=== PATIENT | female | born 1990 | race Two or more races ===

== ENCOUNTER 2023-04-10 14:53 | Emergency (ER) | payer OTHER, SELFPAY ==
--- NOTE | ~2023-04-10 | XR_ITS ---
EXAMINATION:XR foot LT min 3V, XR ankle LT min 3V VIEWS ACQUIRED: Frontal lateral and oblique left foot and left ankle total 5 views CLINICAL INFORMATION: Reason for Exam fall, pain COMPARISON: None available at the time of this dictation. FINDINGS: There is a nondisplaced fracture at the base of the fifth metatarsal. There are no other fractures. Ankle mortise is preserved. Talar dome is intact. Medial and lateral malleoli are normal.. Intertarsal, tarsometatarsal, metatarsophalangeal and interphalangeal joints are intact. Surrounding soft tissues is normal. , No calcaneal spurs. XR/XR ankle LT min 3V IMPRESSION: - Nondisplaced FRACTURE at the base of the fifth metatarsal.
--- NOTE | ~2023-04-10 | XR_ITS ---
EXAMINATION:XR foot LT min 3V, XR ankle LT min 3V VIEWS ACQUIRED: Frontal lateral and oblique left foot and left ankle total 5 views CLINICAL INFORMATION: Reason for Exam fall, pain COMPARISON: None available at the time of this dictation. FINDINGS: There is a nondisplaced fracture at the base of the fifth metatarsal. There are no other fractures. Ankle mortise is preserved. Talar dome is intact. Medial and lateral malleoli are normal.. Intertarsal, tarsometatarsal, metatarsophalangeal and interphalangeal joints are intact. Surrounding soft tissues is normal. , No calcaneal spurs. XR/XR foot LT min 3V IMPRESSION: - Nondisplaced FRACTURE at the base of the fifth metatarsal.
[2023-04-10 15:18] VITALS: BP 109/73; PULSE 85; RESP 18; TEMP 37.3; O2SAT 99; BMI 28.1
--- NOTE | 2023-04-10 15:20 | ED_ITS ---
HPI - Extremity Injury (Lower) General Chief Complaint: Extremity Injury, Lower Stated Complaint: L foot injury Time Seen by Provider: 04/10/23 16:09 Related Data Allergies Allergy/AdvReac Type Severity Reaction Status Date / Time No Known Allergies Allergy Verified 04/10/23 15:22 [facility] Social History Social History Advance Directives: No Advance Directives Information Provided: No Physical Exam Vital Signs: Vital Signs: Last Vital Signs Temp 99.1 F 04/10/23 15:18 Pulse 85 04/10/23 15:18 Resp 18 04/10/23 15:18 BP 109/73 04/10/23 15:18 Pulse Ox 99 04/10/23 15:18 O2 Del Method Room Air 04/10/23 15:18 BMI result Body Mass Index 28.1 Course Course Course Narrative: This is an RME: Additional HPI, ROS, PE not included below will be deferred to primary provider. Patient is a presents emergency department for evaluation of traumatic left ankle/ foot pain 2 days ago with worsening pain, antalgic gait Plan: XR of the ankle/ foot Discharge Plan Discharge Clinical Impression: Nondisplaced fracture of fifth metatarsal bone of left foot Patient Disposition: Home, Self-Care Instructions: Foot Fracture in Adults (ED) Additional Instructions: You have been evaluated in the emergency department today for left foot pain. Your x-ray showed a nondisplaced fracture to the base of your 5th metatarsal. We have provided a walking boot and crutches for you to use while your foot heals. Please rest, ice, and elevate your foot, and resume normal activities as tolerated. We recommend you take 600mg ibuprofen every 6 hours or 650mg Tylenol every 6 hours as needed for pain. If Needed you can alternate these medications as they take 1 medication every 3 hours. For instance at noon take ibuprofen, then at 3:00 p.m. take Tylenol, then at 6:00 p.m. take ibuprofen. Please schedule an appointment for follow-up with your primary care provider this week. Return to the emergency department if you experience worsening pain, numbness, tingling, change of color in your foot, or any other concerning symptoms. Please follow up with orthopedics. Referrals: [facility] [Provider Group] Stand Alone Forms: Work/School Release Interventions: ED Discharge Assessment Last Done: 04/10/23 17:11 Discharge Date/Time: 04/10/23 17:11
--- NOTE | 2023-04-10 16:59 | ED_ITS ---
HPI - General Adult General Chief complaint: Extremity Injury, Lower Stated complaint: L foot injury Time Seen by Provider: 04/10/23 16:09 Source: patient Mode of arrival: ambulatory Limitations: no limitations History of Present Illness HPI narrative: Patient is a 32-year-old female presenting to the emergency department with complaint of left lateral foot pain. Patient reports that she went out to her car at 11:00 p.m. 2 nights ago to get a soda and the ground was uneven, she felt her foot invert and reports hearing a cracking sound. Reports increasing pain with ambulation since. Denies any numbness or tingling to foot or toes. Has taken ibuprofen. complaint: left foot pain Onset (ago): day(s) Location: lower extremity Radiation: non-radiation Severity: moderate Quality: aching Pain Consistency: constant Relieving factors: rest Exacerbating factors: movement and other (weight bearing) Associated symptoms: denies other symptoms Treatments prior to arrival: NSAID Related Data Allergies Allergy/AdvReac Type Severity Reaction Status Date / Time No Known Allergies Allergy Verified 04/10/23 15:22 Review of Systems Review of Systems: As per HPI. Yes all other systems are reviewed and are negative Constitutional: Constitutional: Reports as per HPI [facility] Social History Social History Advance Directives: No Advance Directives Information Provided: No Physical Exam ED Vital Signs: Vital Signs - 24 hr 04/10/23 15:18 Temperature 99.1 F Pulse Rate 85 Respiratory Rate 18 Blood Pressure 109/73 Pulse Oximetry 99 Oxygen Delivery Method Room Air BMI result Body Mass Index 28.1 Vital signs have been reviewed and appear to be correct. Blood pressure normal. Heart rate normal. Respiratory rate normal. Temperature normal. Oxygen saturation normal. Const General: cooperative, healthy appearing and no acute distress Orientation/consciousness: oriented to person, oriented to place, oriented to time and patient oriented x3 Limitations: no limitations HENMT Head: Yes normocephalic and Yes atraumatic Ears: external ears normal General nose exam: Normal external nose present Face and sinus: Yes face symmetric Mouth: oropharynx normal and moist mucous membranes Throat: Yes uvula midline Eyes Pupils: Equal, round and reactive pupils present Neck Neck: Yes normal visual inspection and Yes supple Resp Effort & Inspection: normal respiratory effort and able to speak in complete sentences Auscultation: clear to auscultation bilaterally Cardio Rate: regular rate Rhythm: regular rhythm Heart sounds: S1 normal heart sound present and S2 normal heart sound present GI Palpation (GI): Soft to palpation and nontender Auscultation: normoactive bowel sounds General: Yes no CVA tenderness Back/Spine/Pelvis Back: no CVA tenderness Skin General skin exam: elasticity normal and turgor normal Neuro General: oriented to person, oriented to place, oriented to time, patient oriented x3, moves all extremities, no focal motor deficits and CN's II-XI intact bilaterally Cranial nerves: Yes Equal, round and reactive pupils present Cognition (Neuro): normal cognition Extrem General: Yes full ROM, Yes normal exam except as noted, Yes no pedal edema and Yes no calf tenderness Left lower extremity: foot Details: normal capillary refill, tenderness Location: of the dorsal foot Location: laterally and of the base of the 5th metatarsal, ecchymosis dorsal lateral and vascular exam Details: dorsalis pedis pulse present and posterior tibial pulse present Psych Mental Status: mental status grossly normal Affect: normal affect Thought process: Normal thought process present Medical Decision Making Medical Decision Making MDM Narrative: Patient is a 32-year-old female presenting to the emergency department with complaint of left lateral foot pain. On exam patient is awake, A+Ox3, VS WNL, afebrile, normal neurological exam without focal deficits, tenderness, swelling and mild ecchymosis to base of 5th metatarsal on left foot, 2+ DP and PT pulses. Given reported symptoms and physical exam findings, initial differential includes strain, sprain, fracture. X-ray notable for nondisplaced fracture base of 5th metatarsal. My interpretation is in agreement with the radiologist's interpretation. Results discussed with patient. Patient placed in walking boot with positive CMS distal after application of boot. Patient provided with crutches and crutch teaching. Instructed patient to keep foot elevated while at rest, apply ice several times daily, alternate Tylenol and ibuprofen as needed for discomfort, and follow-up with orthopedics. Return precautions discussed at bedside. Patient verbalized understanding of and agreement with plan. Differential Diagnosis Differential Diagnoses: The differential diagnosis associated with the presentation includes As per MDM. Independent Interpretation I performed an independent interpretation of an: Plain X-Ray Interpretation: Nondisplaced 5th metatarsal fracture Radiology Impression Discussion of test interpretation with radiology: I have reviewed the radiologist's reading. Radiologist Impression: XR/XR foot LT min 3V IMPRESSION: ? - Nondisplaced FRACTURE at the base of the fifth metatarsal. ? ? External Record Review External record reviewed: Inpatient record, Office record and Outpatient record Discharge Plan Discharge Clinical Impression: Nondisplaced fracture of fifth metatarsal bone of left foot Patient Disposition: Home, Self-Care Instructions: Foot Fracture in Adults (ED) Additional Instructions: You have been evaluated in the emergency department today for left foot pain. Your x-ray showed a nondisplaced fracture to the base of your 5th metatarsal. We have provided a walking boot and crutches for you to use while your foot heals. Please rest, ice, and elevate your foot, and resume normal activities as tolerated. We recommend you take 600mg ibuprofen every 6 hours or 650mg Tylenol every 6 hours as needed for pain. If Needed you can alternate these medications as they take 1 medication every 3 hours. For instance at noon take ibuprofen, then at 3:00 p.m. take Tylenol, then at 6:00 p.m. take ibuprofen. Please schedule an appointment for follow-up with your primary care provider this week. Return to the emergency department if you experience worsening pain, numbness, tingling, change of color in your foot, or any other concerning symptoms. Please follow up with orthopedics. Referrals: [facility] [Provider Group]
== END 2023-04-10 17:11 | disposition home or self-care (01) ==
PROVIDERS: Emergency Provider Emergency Medicine
DX: S92.355A Nondisplaced fracture of fifth metatarsal bone, left foot, initial encounter for closed fracture (principal); X50.1XXA Overexertion from prolonged static or awkward postures, initial encounter; Y93.89 Activity, other specified; Y92.480 Sidewalk as the place of occurrence of the external cause; Y99.9 Unspecified external cause status
CPT/HCPCS: 73610; 73630; 99283; 99284

== ENCOUNTER 2023-06-07 21:47 | Inpatient (IN) | payer OTHER, SELFPAY ==
[2023-06-07 21:58] VITALS: BP 104/60; PULSE 100; O2SAT 97
[2023-06-07 22:13] VITALS: BMI 27.1
[2023-06-07 22:21] LABS: MANUAL DIFF FLAG NO
[2023-06-07] MEDS: 0.9 % Sodium Chloride 1,000 ML 999 ML IV (22:21)
[2023-06-07 22:25] VITALS: BP 104/71; PULSE 76; RESP 18; TEMP 37.4; O2SAT 99
[2023-06-07 22:25] LABS: Basophils Percent Auto 0.6 % (0-2); Eosinophils Absolute Auto 0.2 X10*3/uL (0.0-0.4); Eosinophils Percent Auto 3.4 % (0-4); Hemoglobin 12.2 g/dl (12.0-16.0); Imm Gran Abs Auto 0.01 X10*3/uL (0.00-0.03); Imm Gran Pct Auto 0.2 % (0.0-0.4); Lymphocytes Absolute Auto 2.4 X10*3/uL (1.2-4.9); Lymphocytes Percent Auto 49.1 % (20-40); Mean Corpuscular HGB Conc 32.1 g/dl (31.0-35.0); Mean Corpuscular Hemoglobin 30.9 pg (27.0-33.0); Mean Corpuscular Volume 96.2 fL (80.0-98.0); Monocytes Absolute Auto 0.4 X10*3/uL (0.1-1.2); Monocytes Percent Auto 7.7 % (2-11); Neutrophils Absolute Auto 1.9 x10*3/uL (2.0-8.3); Platelet Count 278 X10*3/uL (160-400); Red Blood Count 3.95 X10*6/uL (4.20-5.50); Red Cell Distribution Width 12.9 % (11.0-16.0)
[2023-06-07] MEDS: HYDROmorphone HCl 0.5 MG/0.5 ML SYRINGE IVPUSH (22:27)
[2023-06-07] MEDS: ondansetron HCL 4 MG/2 ML VIAL IVPUSH (22:28)
--- NOTE | 2023-06-07 22:30 | ED_ITS ---
HPI - Wound/Laceration General Chief Complaint: Wound/Laceration Stated Complaint: 2TUMMY TUCK INCISION OPENED UP, BLEEDING CONTRLD Time Seen by Provider: 06/07/23 22:02 Source: patient Mode of arrival: EMS Limitations: no limitations History of Present Illness HPI narrative: 32 yo female who underwent a tummy tuck in on 04/18 and who has done well. She reports on the R side she had a small hole that was left open not a drain so she could express fluids. She is not on antibiotics or thinners. She notes she was doing great until she accidentally rolled over onto her phone and it ripped her R sided incision open. She did not bleed much but the wound is open and she has pain. Onset (ago): minute(s) (just prior to arrival ) Location: abdomen Place: home Patient tetanus UTD: Yes Context: accidental Associated symptoms: pain Treatments prior to arrival: bandage Related Data Allergies Allergy/AdvReac Type Severity Reaction Status Date / Time Latex, Natural Rubber Allergy Unknown Verified 06/07/23 22:19 Review of Systems 2 Review of Systems: Constitutional : No Fever, No Chills, Cardiovascular : No Chest Pain, No SOB Respiratory : No Dyspnea Gastrointestinal : No abdominal pain Musculoskeletal : No Joint Swelling Skin : No rash, positive skin laceration Neuro : No Weakness, No Numbness Psych : No SI/HI All other systems reviewed and are negative PMFSH Past Medical History Attestation statement: The following information was validated with the patient. Source: old records reviewed Medical History No pertinent past medical history Surgical History H/O abdominoplasty Social History Social History (Updated 06/07/23 @ 22:33 by Suyapa Saul DO) Alcohol intake: never Patient Tobacco Use Status: Never used Tobacco Smoked in Last 30 Days: No Use of substances other than those prescribed or required for medical reasons: No Advance Directives: No Advance Directives Information Provided: Yes Nutrition Risks: No Nutritional Risk Physical Exam 2 Vital Signs: Vital Signs: Last Vital Signs Temp 99.3 F 06/07/23 22:25 Pulse 76 06/07/23 22:25 Resp 18 06/07/23 22:25 BP 104/71 06/07/23 22:25 Pulse Ox 99 06/07/23 22:25 O2 Del Method Room Air 06/07/23 22:25 BMI result Body Mass Index 27.1 Appearance: Alert. Oriented X3. Anxious mild acute distress. Eyes: Pupils equal, round and reactive to light. ENT: Pharynx normal. Neck: Normal inspection. Neck supple. CVS: Normal heart rate and rhythm. Pulses normal. Respiratory: No respiratory distress. Breath sounds normal. Abdomen: Soft and nontender. R sided incision there is open 6 to 8cm dehisced surgical wound but it does not seem to invade the fascia or peritoneum no leakage of fluid, there is no sig bleeding, the wound margins are taut I packed the wound with sterile saline soaked gauze and covered with abd dressings. Skin: Skin warm and dry. Normal skin color. Normal skin turgor. Extremities: No lower extremity edema. No calf ttp Neuro: Oriented X 3. No motor deficit. No sensory deficit. Medications Administered Generic Name Dose Route Start Last Admin Trade Name Freq PRN Reason Stop Dose Admin Hydromorphone HCl 0.5 mg 06/07/23 23:18 06/08/23 01:26 Hydromorphone Hcl 0.5 Mg/0.5 Ml Syringe IVPUSH 0.5 mg Q4H PRN Administration Pain, Severe (Pain Scale 7-10) Protocol Dextrose/Sodium Chloride 1,000 mls @ 100 mls/hr 06/07/23 23:30 06/08/23 00:21 D51/2ns IVCONT 100 mls/hr .Q10H RENATA Administration Sodium Chloride 3 ml 06/08/23 00:00 06/08/23 00:24 0.9 % Sodium Chloride Flush 3 Ml Syringe IVFLUSH 3 ml QSHIFT RENATA Administration Discontinued Medications Generic Name Dose Route Start Last Admin Trade Name Freq PRN Reason Stop Dose Admin Hydromorphone HCl 0.5 mg 06/07/23 22:14 06/07/23 22:27 Hydromorphone Hcl 0.5 Mg/0.5 Ml Syringe IVPUSH 06/07/23 22:15 0.5 mg ONCE ONE Administration Protocol Sodium Chloride 1,000 mls @ 999 mls/hr 06/07/23 22:15 06/08/23 00:00 Ns IV 06/07/23 23:15 Infused .Q1H1M RENATA Infusion Cefazolin Sodium 1 gm/ Sodium 50 mls @ 100 mls/hr 06/07/23 22:14 06/07/23 23:10 Chloride IV 06/07/23 22:43 Infused ONCE ONE Infusion Ondansetron HCl 4 mg 06/07/23 22:14 06/07/23 22:28 Ondansetron Hcl 4 Mg/2 Ml Vial IVPUSH 06/07/23 22:15 4 mg ONCE ONE Administration Medical Decision Making Medical Decision Making [facility] Narrative: 32 yo female recent abdominoplasty here with c/o R sided wound dehiscence after direct trauma from her phone at this time wound edges are taut there is no clinical evidence of fascial or peritoneal invasion will start on fluids, IV morphine, IV ancef and surgical consult. Differential Diagnosis Differential Diagnoses: The differential diagnosis associated with the presentation includes wound dehiscence Admission/Observation Consideration of admission/observation: Escalation of care including admission/observation considered admit for surgical evaluation Consult Healthcare Provider Management of the patient was discussed with: Product Communications Manager (Dr. Zavaleta to admit) Lab Data [facility] Lab Attestation statement: I reviewed the patient's lab results. 06/07/23 22:16 06/07/23 22:16 Labs: Lab Results 06/07/23 Range/Units 22:16 WBC 5.0 (4.8-10.8) X10*3/uL RBC 3.95 L (4.20-5.50) X10*6/uL Hgb 12.2 (12.0-16.0) g/dl Hct 38.0 (37.0-47.0) % MCV 96.2 (80.0-98.0) fL MCH 30.9 (27.0-33.0) pg MCHC 32.1 (31.0-35.0) g/dl RDW 12.9 (11.0-16.0) % Plt Count 278 (160-400) X10*3/uL MPV 9.0 L (9.4-12.3) fL Immature Gran % (Auto) 0.2 (0.0-0.4) % Neut % (Auto) 39.0 L (45-73) % Lymph % (Auto) 49.1 H (20-40) % Zapata % (Auto) 7.7 (2-11) % Eos % (Auto) 3.4 (0-4) % Baso % (Auto) 0.6 (0-2) % Lymph # (Auto) 2.4 (1.2-4.9) X10*3/uL Zapata # (Auto) 0.4 (0.1-1.2) X10*3/uL Eos # (Auto) 0.2 (0.0-0.4) X10*3/uL Baso # (Auto) 0.0 (0.0-0.2) X10*3/uL Abs Immat Gran (auto) 0.01 (0.00-0.03) X10*3/uL Absolute Neuts (auto) 1.9 L (2.0-8.3) x10*3/uL Absolute Nucleated RBC 0.000 (0.0-0.012) X10*3/uL Nucleated RBC % (auto) 0.0 (0.0-0.2) /100WBC Sodium 141 (135-145) mmol/L Potassium 3.6 (3.3-5.1) mmol/L Chloride 109 H (96-108) mmol/L Carbon Dioxide 23 (22-29) mmol/L Anion Gap 13 (12-20) BUN 12 (9-16) mg/dL Creatinine 0.78 (0.5-1.4) mg/dL Estim Creat Clear Calc 92.1 Estimated GFR > 60 Random Glucose 89 (60-115) mg/dL Lactic Acid 1.1 (0.5-2.0) mmol/L Calcium 9.3 (8.4-10.2) mg/dL Total Bilirubin 0.4 (0.0-1.0) mg/dL Direct Bilirubin 0.2 (0.0-0.5) mg/dL AST 18 (5-31) U/L ALT 16 (0-31) U/L Alkaline Phosphatase 73 (39-117) U/L Total Protein 7.0 (6.5-8.0) g/dL Albumin 4.1 (3.5-5.0) g/dL Lipase 51 (8-78) U/L Independent Historian Clinical information obtained from an independent historian. History obtained from or confirmed by: EMS Tests considered The following testing was considered but not selected: CT scan but no clinical evidence of peritoneal invasion Discharge Plan Discharge Clinical Impression: Dehiscence of wound Patient Disposition: Admitted As Inpatient
[2023-06-07 22:32] LABS: Lactic Acid 1.1 mmol/L (0.5-2.0)
[2023-06-07 22:36] LABS: Alanine Aminotransferase 16 U/L (0-31); Albumin Level 4.1 g/dL (3.5-5.0); Alkaline Phosphatase 73 U/L (39-117); Anion Gap 13 (12-20); Aspartate Amino Transferase 18 U/L (5-31); Bilirubin Direct 0.2 mg/dL (0.0-0.5); Bilirubin Total 0.4 mg/dL (0.0-1.0); Blood Urea Nitrogen 12 mg/dL (9-16); Calcium 9.3 mg/dL (8.4-10.2); Carbon Dioxide 23 mmol/L (22-29); Chloride 109 mmol/L (96-108); Creatinine Clr Calc Pharmacy 92.1; Estimated Glomerular Filt Rate > 60; Glucose Random 89 mg/dL (60-115); Lipase 51 U/L (8-78); Potassium 3.6 mmol/L (3.3-5.1); Sodium 141 mmol/L (135-145)
[2023-06-08] VITALS (15 sets, daily range): BP systolic 98–129; BP diastolic 66–79; PULSE 60–92; RESP 12–18; TEMP 36.1–37; O2SAT 96–100
[2023-06-08] MEDS: Dextrose 5 % and 0.45 % NaCl 1,000 ML 100 ML IVCONT ×2 (00:21→15:53)
[2023-06-08] MEDS: 0.9 % Sodium Chloride Flush 3 ML SYRINGE IVFLUSH ×3 (00:24→21:29)
[2023-06-08] MEDS: HYDROmorphone HCl 0.5 MG/0.5 ML SYRINGE IVPUSH ×4 (01:26→21:31)
[2023-06-08] MEDS: ceFAZolin Sodium/Dextrose,Iso 2 GM/50 ML PIGGYBACK IV ×3 (06:31→21:32)
--- NOTE | 2023-06-08 08:22 | PHA.MEDREC ---
Pharmacy Consult ? Medication Reconciliation Pharmacy has completed the medication reconciliation.
--- NOTE | 2023-06-08 08:45 | PC.NURSE ---
assumed care of pt at 0700. pt a&o x4, pleasant, calm, and cooperative. pt reports pain to right side, where incision opened up. medicated per oct. fluids running per oct. VSS hansa. surgical PA checked in with pt and educated on the plan of care. SSS called for report on pt with pickup time to OR at 1000. pt sts pain has decreased to 3/10 and much more tolerable. pt resting quietly on stretcher in no apparent distress, rr even/unlabored. call rodriguez within pt reach. pt s/o at bedside. awaiting transport to OR.
--- NOTE | 2023-06-08 09:08 | P.HPGS_ITS ---
History of Present Illness History of Present Illness Date of Service: 06/08/23 <Ketty Kilpatrick PA-C - Last Filed: 06/08/23 09:31> 06/08/23 <Con Zavaleta MD - Last Filed: 06/08/23 13:54> Chief complaint: Wound dehiesence <Ketty Kilpatrick PA-C - Last Filed: 06/08/23 09:31> Narrative: Ting Mitchell is a 32 year old female with no significant PMH who presented to the ED for an open abdominal wound. She had an abdominoplasty in the [facility] on 05/18. The surgery was uncomplicated. She had a ADRIANO drain that was removed on 05/27 and she flew home on 05/28. She had a small opening where the drain was which had very scant drainage. She had been doing well and her recovery had been uneventful. She reports last night she was laying down and turned over onto her phone which caught the edge of her incision. She felt a significant amount of pain and warmth and looked down to a large open wound along her incision. She came immediately to the ED. She has had nothing to eat or drink since last night. <Ketty Kilpatrick PA-C - Last Filed: 06/08/23 09:31> Review of Systems 2 Constitutional: Constitutional: Denies chills and Denies fever(s) < Ketty Kilpatrick PA-C - Last Filed: 06/08/23 09:31> ENT: Denies dizziness <Ketty Kilpatrick PA-C - Last Filed: 06/08/23 09:31> Cardiovascular: Cardiovascular: Denies chest pain, Denies palpitations and Denies dyspnea <Ketty Kilpatrick PA-C - Last Filed: 06/08/23 09:31> Respiratory: Respiratory: Denies cough and Denies dyspnea <ALEX Al Last Filed: 06/08/23 09:31> Gastrointestinal: Gastrointestinal: Reports abdominal pain, Denies nausea and Denies vomiting <ALEX Al Last Filed: 06/08/23 09:31> Integumentary/Breasts: Skin/Breast: Reports as per HPI, Denies rash and Denies jaundice <Ketty Kilpatrick PA-C - Last Filed: 06/08/23 09:31> Neurologic: Denies dizziness <Ketty Kilpatrick PA-C Last Filed: 06/08/23 09:31> Endocrine: Endocrine: Denies palpitations <ALEX Al Last Filed: 06/08/23 09:31> PMFSH Past Medical History Medical History: Medical History No pertinent past medical history <ALEX Al Last Filed: 06/08/23 09:31> Surgical History Surgical History: Surgical History History of breast augmentation History of gastric bypass H/O abdominoplasty <ALEX Al Last Filed: 06/08/23 09:31> Social History Social History: Social History Alcohol intake: never Patient Tobacco Use Status: Never used Tobacco Smoked in Last 30 Days: No Second Hand Smoke Exposure: No Use of substances other than those prescribed or required for medical reasons: No Are you DNR?: No Advance Directives: No Advance Directives Information Provided: Yes Advance Directives on File: No Nutrition Risks: No Nutritional Risk service: No <Ketty Kilpatrick PA-C Last Filed: 06/08/23 09:31> Meds Allergies/Adverse reactions: Allergies Allergy/AdvReac Type Severity Reaction Status Date / Time Latex, Natural Rubber Allergy Unknown Verified 06/07/23 22:19 <ALEX Al Last Filed: 06/08/23 09:31> Active Medications: Current Medications Acetaminophen (Acetaminophen 325 Mg Tablet) 650 mg PO Q6H PRN PRN Reason: Pain, Mild (Pain Scale 1-3) Al Hydroxide/Mg Hydroxide (Magnesium Hydrox/Alum Hydrox 30 Ml Oral.Susp) 30 ml PO Q4H PRN PRN Reason: Heartburn/Nausea Hydromorphone HCl (Hydromorphone Hcl 0.5 Mg/0.5 Ml Syringe) 0.5 mg IVPUSH Q4H PRN; Protocol PRN Reason: Pain, Severe (Pain Scale 7-10) Last Admin: 06/08/23 07:21 Dose: 0.5 mg Dextrose/Sodium Chloride (D51/2ns) 1,000 mls @ 100 mls/hr IVCONT .Q10H [facility] Last Admin: 06/08/23 00:21 Dose: 100 mls/hr Cefazolin Sodium/Dextrose (Ancef) 2 gm in 50 mls @ 100 mls/hr IV Q8H [facility] Last Infusion: 06/08/23 07:05 Dose: Infused Magnesium Hydroxide (Milk Of Magnesia 30 Ml Oral.Susp) 30 ml PO DAILY PRN PRN Reason: Constipation Ondansetron HCl (Ondansetron Hcl 4 Mg/2 Ml Vial) 4 mg IVPUSH Q8H PRN PRN Reason: Nausea and Vomiting Sodium Chloride (0.9 % Sodium Chloride Flush 3 Ml Syringe) 3 ml IVFLUSH QSHIFT [facility] Last Admin: 06/08/23 07:05 Dose: Not Given Zolpidem Tartrate (Zolpidem Tartrate 5 Mg Tablet) 5 mg PO BEDTIME PRN PRN Reason: Insomnia <ALEX Al Last Filed: 06/08/23 09:31> Home medications: Home Medications Medication Instructions Recorded Confirmed Last Taken Type No Known Home Meds 06/08/23 06/08/23 Unknown History <ALEX Al Last Filed: 06/08/23 09:31> Physical Exam 2 Vital Signs: Vital Signs: Last Vital Signs Temp 99.3 F 06/07/23 22:25 Pulse 92 06/08/23 07:28 Resp 16 06/08/23 07:28 BP 110/79 06/08/23 07:28 Pulse Ox 98 06/08/23 07:28 O2 Del Method Room Air 06/08/23 07:28 BMI result Body Mass Index 27.1 <ALEX Al Last Filed: 06/08/23 09:31> Const: General: comfortable, no acute distress and alert <ALEX Al Last Filed: 06/08/23 09:31> Nutritional Appearance: well nourished <GORDY AlC - Last Filed: 06/08/23 09:31> Orientation/consciousness: patient oriented x3 <Ketty Kilpatrick PA-C Stephie Last Filed: 06/08/23 09:31> Resp: Effort & Inspection: normal respiratory effort <Ketty Kilpatrick PA-C Stephie Last Filed: 06/08/23 09:31> GI: Other: large open wound of abdominoplasty incision into deep subq fat; fascia appears intact; no active bleeding noted; remainder of incision healing well without erythema or drainage <Ketty Kilpatrick PA-C Stephie Last Filed: 06/08/23 09:31> Skin: General skin exam: no rashes or lesions noted <Ketty Kilpatrick PA-C Stephie Last Filed: 06/08/23 09:31> Neuro: General: patient oriented x3 and moves all extremities <Ketty Kilpatrick PA-C Stephie Last Filed: 06/08/23 09:31> Extrem: General: Yes no clubbing, cyanosis or edema <Ketty Kilpatrick PA-C Stephie Last Filed: 06/08/23 09:31> Results Results Labs: Short CBC 06/07/23 Range/Units 22:16 WBC 5.0 (4.8-10.8) X10*3/uL Hgb 12.2 (12.0-16.0) g/dl Hct 38.0 (37.0-47.0) % Plt Count 278 (160-400) X10*3/uL BMP 06/07/23 22:16 Sodium 141 Potassium 3.6 Chloride 109 H Carbon Dioxide 23 BUN 12 Creatinine 0.78 Calcium 9.3 Liver Function 06/07/23 Range/Units 22:16 Total Bilirubin 0.4 (0.0-1.0) mg/dL Direct Bilirubin 0.2 (0.0-0.5) mg/dL AST 18 (5-31) U/L ALT 16 (0-31) U/L Alkaline Phosphatase 73 (39-117) U/L Albumin 4.1 (3.5-5.0) g/dL <ALEX Al Last Filed: 06/08/23 09:31> Assessment and Plan (1) Dehiscence of wound: Status: Acute <Ketty Kilpatrick PA-C - Last Filed: 06/08/23 09:31> 32 year old female who is 3 weeks s/p abdominoplasty in the [place] with a superficial wound dehiscence. Fascia appears intact. Discussed exploration and wash out in the operating room with possible primary closure or wound vac placement. Discussed the other option is daily dressing changes and allow for wound closure by secondary intention. She is agreeable and would like for it to be closed if possible. Will add onto OR schedule for today. Started on IV abx empirically. <Ketty Kilpatrick PA-C - Last Filed: 06/08/23 09:31> Time Spent With Patient Time: Total time managing care of this patient today ____ minutes. <Ketty Kilpatrick PA-C - Last Filed: 06/08/23 09:31> Quality Stroke Does the patient have a stroke diagnosis?: No <Con Zavaleta MD - Last Filed: 06/08/23 13:54> VTE Prior VTE?: No <Con Zavaleta MD - Last Filed: 06/08/23 13:54> VTE Risk Level:: Surgical - low <Ketty Kilpatrick PA-C - Last Filed: 06/08/23 09:31> VTE Device Contraindication: Treatment Not Indicated <Ketty Kilpatrick PA-C - Last Filed: 06/08/23 09:31> VTE Drug Contraindication: Treatment Not Indicated <Ketty Kilpatrick PA-C - Last Filed: 06/08/23 09:31> Procedures Date of Service Date of Service: 06/08/23 <Ketty Kilpatrick PA-C - Last Filed: 06/08/23 09:31> 06/08/23 <Con Zavaleta MD - Last Filed: 06/08/23 13:54>
--- NOTE | 2023-06-08 09:50 | MHC.CM.PN ---
PT REPORTS SHE LIVES WITH HER S/O AND IS INDEPENDENT WITH CARE SHE HAS NO SERVICES AND NO DME PT DOES NOT HAVE A PCP BUT REPORTS KNOWING HOW TO OBTAIN ONE SHE DOES NOT HAVE A HCP, SHE IS AWARE CM CAN ASSIST IF SHE WANTS TO COMPLETE ONE DCP: HOME NO SERVICES S/O TO TRANSPORT
--- NOTE | 2023-06-08 10:39 | HO.ANESPROP2 ---
HPI - Anesthesia Eval Consult details Narrative: 32 yo F admitted for wound dehiscence s/p abdominoplasty in 04/2023. PMFSH Active Problems Active Problems: All Active Problems (Updated 06/07/23 @ 22:37 by Suyapa Saul DO) Dehiscence of wound (Acute) Past Medical History Medical History No pertinent past medical history Surgical History Surgical History History of breast augmentation History of gastric bypass H/O abdominoplasty History of Problems with Anesthesia: No Social History Social History Alcohol intake: never Patient Tobacco Use Status: Never used Tobacco Smoked in Last 30 Days: No Second Hand Smoke Exposure: No Use of substances other than those prescribed or required for medical reasons: No Are you DNR?: No Advance Directives: No Advance Directives Information Provided: Yes Advance Directives on File: No Nutrition Risks: No Nutritional Risk service: No Meds Allergies Allergy/AdvReac Type Severity Reaction Status Date / Time Latex, Natural Rubber Allergy Unknown Verified 06/07/23 22:19 Active Medications: Current Medications Acetaminophen (Acetaminophen 325 Mg Tablet) 650 mg PO Q6H PRN PRN Reason: Pain, Mild (Pain Scale 1-3) Al Hydroxide/Mg Hydroxide (Magnesium Hydrox/Alum Hydrox 30 Ml Oral.Susp) 30 ml PO Q4H PRN PRN Reason: Heartburn/Nausea Hydromorphone HCl (Hydromorphone Hcl 0.5 Mg/0.5 Ml Syringe) 0.5 mg IVPUSH Q4H PRN; Protocol PRN Reason: Pain, Severe (Pain Scale 7-10) Last Admin: 06/08/23 07:21 Dose: 0.5 mg Dextrose/Sodium Chloride (D51/2ns) 1,000 mls @ 100 mls/hr IVCONT .Q10H [facility] Last Admin: 06/08/23 00:21 Dose: 100 mls/hr Cefazolin Sodium/Dextrose (Ancef) 2 gm in 50 mls @ 100 mls/hr IV Q8H [facility] Last Infusion: 06/08/23 07:05 Dose: Infused Magnesium Hydroxide (Milk Of Magnesia 30 Ml Oral.Susp) 30 ml PO DAILY PRN PRN Reason: Constipation Ondansetron HCl (Ondansetron Hcl 4 Mg/2 Ml Vial) 4 mg IVPUSH Q8H PRN PRN Reason: Nausea and Vomiting Sodium Chloride (0.9 % Sodium Chloride Flush 3 Ml Syringe) 3 ml IVFLUSH QSHIFT [facility] Last Admin: 06/08/23 07:05 Dose: Not Given Zolpidem Tartrate (Zolpidem Tartrate 5 Mg Tablet) 5 mg PO BEDTIME PRN PRN Reason: Insomnia Home Medications Medication Instructions Recorded Confirmed Last Taken Type No Known Home Meds 06/08/23 06/08/23 Unknown History Exam Exam Date and Time: June 08, 2023 1039 Height,Weight and Vital Signs: Height 5 ft 2 in Weight 67.132 kg Last Vital Signs Temp 98.3 F 06/08/23 10:15 Pulse 70 06/08/23 10:15 Resp 16 06/08/23 10:15 BP 103/68 06/08/23 10:15 Pulse Ox 99 06/08/23 10:15 O2 Del Method Room Air 06/08/23 10:15 Pertinent Lab Results Pertinent Lab Results: Laboratory Tests 06/07/23 22:16 WBC 5.0 RBC 3.95 L Hgb 12.2 Hct 38.0 MCV 96.2 MCH 30.9 MCHC 32.1 RDW 12.9 Plt Count 278 MPV 9.0 L Immature Gran % (Auto) 0.2 Neut % (Auto) 39.0 L Lymph % (Auto) 49.1 H Bartholomew % (Auto) 7.7 Eos % (Auto) 3.4 Baso % (Auto) 0.6 Lymph # (Auto) 2.4 Bartholomew # (Auto) 0.4 Eos # (Auto) 0.2 Baso # (Auto) 0.0 Abs Immat Gran (auto) 0.01 Absolute Neuts (auto) 1.9 L Absolute Nucleated RBC 0.000 Nucleated RBC % (auto) 0.0 Sodium 141 Potassium 3.6 Chloride 109 H Carbon Dioxide 23 Anion Gap 13 BUN 12 Creatinine 0.78 Estim Creat Clear Calc 92.1 Estimated GFR > 60 Random Glucose 89 Lactic Acid 1.1 Calcium 9.3 Total Bilirubin 0.4 Direct Bilirubin 0.2 AST 18 ALT 16 Alkaline Phosphatase 73 Total Protein 7.0 Albumin 4.1 Lipase 51 Airway Mallampati Class: I TM Dist: >3cm Neck ROM: Full Loose/Missing/Broken Teeth: No (veneers and temporaries for implants but not loose or removeable) Heart: S1S2 Lungs: CTAB Assessment and Plan Assessment Anesthesia Assessment: Anesthesia Plan Discussed and Chart Reviewed Final Anesthetic Review History of Problems with Anesthesia: No NPO: Yes ASA Class: I Final Preanesthetic Review: No Changes in Pt Med Stat, Meds/Allgs Chart Reviewed, Consent Obtained/Reviewed and Anes Risks/Benef Reviewed Patient Risk: Low Procedure Risk: Low Anesthetic Plan Anesthetic Plan: GA (vs MAC - patient consented for both depending on surgical plan. Will discuss with Dr. Zavaleta.) and Agree w/ Assess. and Plan Disposition: Standard PACU
--- NOTE | 2023-06-08 12:54 | W.PM.OPN ---
Operative Note Operative Note Date of Service: 06/08/23 Narrative: Preoperative diagnosis: [] Wound dehiscence status post abdominoplasty in [facility] Postop diagnosis: [] Same Procedure [] debridement, closure distal abdominal incision Surgeon: [] Waqar Carbon Dioxide Operator: [] Finesse Type of Anesthesia: [] MAC Indication for surgery: [] Patient has approximately 2+ weeks postop from abdominplasty performed [facility]. She presented with a gush of fluid and opening up of the right side of her incision. Intraoperative findings demonstrated massive seroma which extended almost to the costal margin. Along with the right half the incision, the medial 3rd incision also dehisced. Final dimensions measured approximately 25 cm by 20 cm. Flaps were made inferiorly, and wound was irrigated, secured hemostasis, and was able to be closed primarily with minimal tension. Findings: [] Patient brought to the operating room, placed on operative table in supine position, after adequate level of MAC anesthesia was induced, the incision site of the dehisced wound was infiltrated 0.5% Marcaine/1% lidocaine. Wound was explored where a profound seroma was drained from the abdominal portion of the incision. Wound was very copiously irrigated with Betadine solution and scrubbed the scrub brush. Next the inferior flap was developed using Bovie through the inferior portion of the incision. Wound was able to be reapproximated using interrupted inverted dermal 2-0 Vicryl sutures with minimal tension. A Issac-Pak drain was left in the wound and seroma cavity via the inferior flap and secured to the skin using 2-0 nylon. At completion of the procedure, wound was irrigated, secured hemostasis, and Steri-Strips and sterile dressings were applied. Patient tolerated procedure well and emerged from anesthesia in stable condition. Sponge, needle, instrument counts reported correct. EBL minimum.
[2023-06-08] MEDS: oxyCODONE HCl Immed Release 5 MG TABLET 10 MG PO (13:11)
[2023-06-08] MEDS: Acetaminophen 1,000 MG/100 ML PIGGYBACK 400 MG IV ×2 (16:42→21:28)
[2023-06-08] MEDS: Docusate Sodium 100 MG CAPSULE PO (21:29)
[2023-06-08] MEDS: Zolpidem Tartrate 5 MG TABLET PO (22:14)
[2023-06-09 03:24] VITALS: BP 103/62; PULSE 67; RESP 16; TEMP 36.6; O2SAT 97
[2023-06-09] MEDS: Acetaminophen 1,000 MG/100 ML PIGGYBACK 400 MG IV ×4 (05:26→22:32)
[2023-06-09] MEDS: ceFAZolin Sodium/Dextrose,Iso 2 GM/50 ML PIGGYBACK IV ×3 (05:28→21:40)
[2023-06-09] MEDS: HYDROmorphone HCl 0.5 MG/0.5 ML SYRINGE IVPUSH ×3 (05:52→21:36)
[2023-06-09 07:43] VITALS: BP 114/69; PULSE 77; RESP 18; TEMP 36.7; O2SAT 96
[2023-06-09] MEDS: oxyCODONE HCl Immed Release 5 MG TABLET 10 MG PO ×3 (07:54→18:45)
[2023-06-09] MEDS: 0.9 % Sodium Chloride Flush 3 ML SYRINGE IVFLUSH ×2 (07:56→15:57)
[2023-06-09] MEDS: Docusate Sodium 100 MG CAPSULE PO ×2 (07:58→21:42)
--- NOTE | 2023-06-09 09:17 | PM.PNGS ---
Subjective Subjective Date of Service: 06/09/23 Interval history: C/o significant pain. Somewhat relieved with analgesics. Tolerating solid diet. OOB to bathroom. Physical Exam Vital Signs: Vital Signs: Last Vital Signs Temp 98.1 F 06/09/23 07:43 Pulse 77 06/09/23 07:43 Resp 18 06/09/23 07:43 BP 114/69 06/09/23 07:43 Pulse Ox 96 06/09/23 07:43 O2 Del Method Room Air 06/09/23 07:43 O2 Flow Rate 2 06/08/23 14:33 BMI result Body Mass Index 27.1 Const: General: comfortable, no acute distress and alert Orientation/consciousness: patient oriented x3 Resp: Effort & Inspection: normal respiratory effort GI: Other: ADRIANO with scant serosanguineous drainage Inspection: No distended and Yes incision (clean, steris intact) Palpation (GI): Soft to palpation and Tenderness to palpation present (GI) (incisional) Skin: General skin exam: no rashes or lesions noted Neuro: General: patient oriented x3 and moves all extremities Objective Data Active Medications Al Hydroxide/Mg Hydroxide (Magnesium Hydrox/Alum Hydrox 30 Ml Oral.Susp) 30 ml PO Q4H PRN PRN Reason: Heartburn/Nausea Docusate Sodium (Docusate Sodium 100 Mg Capsule) 100 mg PO BID [facility] Last Admin: 06/09/23 07:58 Dose: 100 mg Documented By: SADIQ Hydromorphone HCl (Hydromorphone Hcl 0.5 Mg/0.5 Ml Syringe) 0.5 mg IVPUSH Q4H PRN; Protocol PRN Reason: Pain, Severe (Pain Scale 7-10) Last Admin: 06/09/23 05:52 Dose: 0.5 mg Documented By: CANDICE Cefazolin Sodium/Dextrose (Ancef) 2 gm in 50 mls @ 100 mls/hr IV Q8H [facility] Last Infusion: 06/09/23 06:50 Dose: Infused Documented By: CANDICE Acetaminophen (Ofirmev) 1,000 mg in 100 mls @ 400 mls/hr IV Q6H [facility] Last Infusion: 06/09/23 05:48 Dose: Infused Documented By: CANDICE Magnesium Hydroxide (Milk Of Magnesia 30 Ml Oral.Susp) 30 ml PO DAILY PRN PRN Reason: Constipation Ondansetron HCl (Ondansetron Hcl 4 Mg/2 Ml Vial) 4 mg IVPUSH Q8H PRN PRN Reason: Nausea and Vomiting Oxycodone HCl (Oxycodone Hcl Immed Release 5 Mg Tablet) 5 mg PO Q4H PRN PRN Reason: Pain, Moderate(Pain Scale 4-6) Oxycodone HCl (Oxycodone Hcl Immed Release 5 Mg Tablet) 10 mg PO Q4H PRN PRN Reason: Pain, Severe (Pain Scale 7-10) Last Admin: 06/09/23 07:54 Dose: 10 mg Documented By: SADIQ Sodium Chloride (0.9 % Sodium Chloride Flush 3 Ml Syringe) 3 ml IVFLUSH [facility] Last Admin: 06/09/23 07:56 Dose: 3 ml Documented By: SADIQ Zolpidem Tartrate (Zolpidem Tartrate 5 Mg Tablet) 5 mg PO BEDTIME PRN PRN Reason: Insomnia Last Admin: 06/08/23 22:14 Dose: 5 mg Documented By: CANDICE Labs 06/07/23 22:16 06/07/23 22:16 Procedures Date of Service Date of Service: 06/09/23 Progress Note: A&P Assessment and plan (1) Dehiscence of wound: Status: Acute Plan 32 year old female with superficial wound dehiscence s/p abdominoplasty now POD #1 s/p debridement, wash out and closure of abdominoplasty incision. Doing fairly well post op. ADRIANO with scant output and incision remains intact. Will require another night for pain control. OOB/ambulation today. Cont abd binder. Patient comfortable with plan. Time Spent With Patient Time: Total time managing care of this patient today ____ minutes. Quality Stroke Does the patient have a stroke diagnosis?: No VTE Prior VTE?: No VTE Risk Level:: Surgical - low VTE Device Contraindication: Treatment Not Indicated VTE Drug Contraindication: Treatment Not Indicated
--- NOTE | 2023-06-09 12:31 | MHC.CM.PN ---
DP home self care. Patient will arrange for transport home. No discharge planned for today.
--- NOTE | 2023-06-09 13:10 | HO.POSTANES ---
Post Anesthesia Evaluation Post Anesthesia Evaluation Date of Service: 06/09/23 Vital Signs: Vital Signs Temp Pulse Resp BP Pulse Ox O2 Del Method 06/09/23 07:43 98.1 F 77 18 114/69 96 Room Air 06/09/23 03:24 98 F 67 16 103/62 97 Room Air Anesthesia: Monitored Mental Status: Awake Pain Control: Satisfactory Nausea/Vomiting: None Hydration: Adequate Anesthesia-Related Issues: No Anes. Related Issues
[2023-06-09 15:32] VITALS: BP 98/57; PULSE 90; RESP 16; TEMP 36.2; O2SAT 97
--- NOTE | 2023-06-09 16:18 | PC.NURSE ---
lower abdoomen steri-strips all intact,abdominal binder on,right groin area ADRIANO drain intact draining yellow drainage
[2023-06-09 19:39] VITALS: BP 112/72; PULSE 85; RESP 18; TEMP 36.4; O2SAT 97
[2023-06-10] MEDS: 0.9 % Sodium Chloride Flush 3 ML SYRINGE IVFLUSH ×3 (00:26→16:27)
[2023-06-10] MEDS: oxyCODONE HCl Immed Release 5 MG TABLET 10 MG PO (00:32)
[2023-06-10] MEDS: Acetaminophen 1,000 MG/100 ML PIGGYBACK 400 MG IV ×4 (04:07→21:50)
[2023-06-10 04:22] VITALS: BP 102/58; PULSE 68; RESP 18; TEMP 36.6; O2SAT 96
[2023-06-10] MEDS: HYDROmorphone HCl 0.5 MG/0.5 ML SYRINGE IVPUSH (06:05)
[2023-06-10] MEDS: ceFAZolin Sodium/Dextrose,Iso 2 GM/50 ML PIGGYBACK IV ×3 (06:07→20:49)
--- NOTE | 2023-06-10 07:37 | P.PNGS_ITS ---
Subjective Subjective Date of Service: 06/10/23 <Ketty Kilpatrick PA-C - Last Filed: 06/10/23 07:43> 06/10/23 <Con Zavaleta MD - Last Filed: 06/10/23 09:00> Interval history: Continues to have severe pain at incision site. IV meds help but wear of too quickly. Does not feel PO oxycodone helps at all. Has not been eating or drinking much due to pain. C/o dizziness upon sitting/standing up but this resolves after a minute or two. <Ketty Kilpatrick PA-C - Last Filed: 06/10/23 07:43> Physical Exam 2 Vital Signs: Vital Signs: Last Vital Signs Temp 97.9 F 06/10/23 04:22 Pulse 68 06/10/23 04:22 Resp 18 06/10/23 04:22 BP 102/58 L 06/10/23 04:22 Pulse Ox 96 06/10/23 04:22 O2 Del Method Room Air 06/10/23 04:22 O2 Flow Rate 2 06/08/23 14:33 BMI result Body Mass Index 27.1 <Ketty Kilpatrick PA-C - Last Filed: 06/10/23 07:43> Const: General: comfortable, no acute distress and alert <ALEX Al Last Filed: 06/10/23 07:43> Orientation/consciousness: patient oriented x3 <ALEX Al Last Filed: 06/10/23 07:43> Resp: Effort & Inspection: normal respiratory effort <ALEX Al Last Filed: 06/10/23 07:43> GI: Other: ADRIANO drain scant serous output <ALEX Al Last Filed: 06/10/23 07:43> Inspection: No distended and Yes incision (clean, intact) <ALEX Al Last Filed: 06/10/23 07:43> Palpation (GI): Tenderness to palpation present (GI) (incisional), no guarding and not rigid <ALEX Al Last Filed: 06/10/23 07:43> Skin: General skin exam: no rashes or lesions noted <Ketty Kilpatrick PA-C - Last Filed: 06/10/23 07:43> Neuro: General: patient oriented x3 <Ketty Kilpatrick PA-C - Last Filed: 06/10/23 07:43> Objective Data Active Medications Al Hydroxide/Mg Hydroxide (Magnesium Hydrox/Alum Hydrox 30 Ml Oral.Susp) 30 ml PO Q4H PRN PRN Reason: Heartburn/Nausea Docusate Sodium (Docusate Sodium 100 Mg Capsule) 100 mg PO BID [facility] Last Admin: 06/09/23 21:42 Dose: 100 mg Documented By: SANJAY Hydromorphone HCl (Hydromorphone Hcl 0.5 Mg/0.5 Ml Syringe) 0.5 mg IVPUSH Q4H PRN; Protocol PRN Reason: Pain, Severe (Pain Scale 7-10) Last Admin: 06/10/23 06:05 Dose: 0.5 mg Documented By: PAPO Hydromorphone HCl (Hydromorphone Hcl 2 Mg Tablet) 2 mg PO Q4H PRN PRN Reason: Pain, Moderate(Pain Scale 4-6) Hydromorphone HCl (Hydromorphone Hcl 4 Mg Tablet) 4 mg PO Q4H PRN PRN Reason: Pain, Severe (Pain Scale 7-10) Cefazolin Sodium/Dextrose (Ancef) 2 gm in 50 mls @ 100 mls/hr IV Q8H [facility] Last Infusion: 06/10/23 06:37 Dose: Infused Documented By: PAPO Acetaminophen (Ofirmev) 1,000 mg in 100 mls @ 400 mls/hr IV Q6H [facility] Last Infusion: 06/10/23 04:25 Dose: Infused Documented By: PAPO Magnesium Hydroxide (Milk Of Magnesia 30 Ml Oral.Susp) 30 ml PO DAILY PRN PRN Reason: Constipation Ondansetron HCl (Ondansetron Hcl 4 Mg/2 Ml Vial) 4 mg IVPUSH Q8H PRN PRN Reason: Nausea and Vomiting Sodium Chloride (0.9 % Sodium Chloride Flush 3 Ml Syringe) 3 ml IVFLUSH QSHIFT [facility] Last Admin: 06/10/23 00:26 Dose: 3 ml Documented By: PAPO Zolpidem Tartrate (Zolpidem Tartrate 5 Mg Tablet) 5 mg PO BEDTIME PRN PRN Reason: Insomnia Last Admin: 06/08/23 22:14 Dose: 5 mg Documented By: CANDICE <Ketty Kilpatrick PA-C - Last Filed: 06/10/23 07:43> Labs CBC & Chem 7: 06/07/23 22:16 06/07/23 22:16 <Ketty Kilpatrick PA-C - Last Filed: 06/10/23 07:43> Procedures Date of Service Date of Service: 06/10/23 <Ketty Kilpatrick PA-C - Last Filed: 06/10/23 07:43> 06/10/23 <Con Zavaleta MD - Last Filed: 06/10/23 09:00> Progress Note: A&P Assessment and plan (1) Dehiscence of wound: Status: Acute <Ketty Kilpatrick PA-C - Last Filed: 06/10/23 07:43> Assessment and Plan: 32 year old female with superficial wound dehiscence s/p abdominoplasty now POD #2 s/p debridement, wash out and closure of abdominoplasty incision. Having difficulty with pain control. Will adjust analgesics. Dizziness likely secondary to being sedentary, dehydration. PO fluids encouraged. Will monitor. ADRIANO with serous output but >30cc/day. Cont abd binder. Will reassess later today, possible dc to home if comfortable on PO analgesics. Patient comfortable with plan. <Ketty Kilpatrick PA-C - Last Filed: 06/10/23 07:43> Time Spent With Patient Time: Total time managing care of this patient today ____ minutes. <Ketty Kilpatrick PA-C - Last Filed: 06/10/23 07:43> Quality Stroke Does the patient have a stroke diagnosis?: No <ALEX Al Last Filed: 06/10/23 07:43> VTE Prior VTE?: No <LAEX Al Last Filed: 06/10/23 07:43> VTE Risk Level:: Surgical - low <Ketty Kilpatrick PA-C - Last Filed: 06/10/23 07:43> VTE Device Contraindication: Treatment Not Indicated <Ketty Kilpatrick PA-C - Last Filed: 06/10/23 07:43> VTE Drug Contraindication: Treatment Not Indicated <Ketty Kilpatrick PA-C - Last Filed: 06/10/23 07:43>
[2023-06-10 07:50] VITALS: BP 103/60; PULSE 76; RESP 18; TEMP 37.1; O2SAT 97
[2023-06-10] MEDS: Docusate Sodium 100 MG CAPSULE PO ×2 (09:43→20:48)
--- NOTE | 2023-06-10 15:23 | PC.NURSE ---
Patient Giovanny was informed via phone not to bring patient Roxicodone to the hospital,we are unable to dispose patient own meds
[2023-06-10 16:00] VITALS: BP 97/67; PULSE 73; RESP 18; TEMP 36.9; O2SAT 97
[2023-06-10 20:00] VITALS: BP 109/66; PULSE 86; RESP 20; TEMP 36.4; O2SAT 99
[2023-06-11] MEDS: 0.9 % Sodium Chloride Flush 3 ML SYRINGE IVFLUSH (00:11)
[2023-06-11 04:00] VITALS: BP 97/53; PULSE 76; RESP 18; TEMP 36.5
[2023-06-11] MEDS: Acetaminophen 1,000 MG/100 ML PIGGYBACK 400 MG IV (04:06)
[2023-06-11] MEDS: HYDROmorphone HCl 2 MG TABLET PO (06:17)
[2023-06-11] MEDS: ceFAZolin Sodium/Dextrose,Iso 2 GM/50 ML PIGGYBACK IV (06:18)
[2023-06-11 07:33] VITALS: BP 99/50; PULSE 68; RESP 16; TEMP 36.6; O2SAT 96
--- NOTE | 2023-06-11 08:23 | PM.DS ---
DS: Providers Provider Date of Service: 06/11/23 Date of admission: 06/07/23 23:19 Date of discharge: 06/11/23 Primary care physician: Franny Physician Attending physician on admission: Con Zavaleta Attending physician on discharge: Con Zavaleta DS: Diagnosis Discharge Diagnosis (1) Dehiscence of wound: Status: Acute DS: Summary Hospital Course Hospital Course: HPI AT ADMISSION: Ting Mitchell is a 32 year old female with no significant PMH who presented to the ED for an open abdominal wound. She had an abdominoplasty in the [facility] on 05/18. The surgery was uncomplicated. She had a ADRIANO drain that was removed on 05/27 and she flew home on 05/28. She had a small opening where the drain was which had very scant drainage. She had been doing well and her recovery had been uneventful. She reports last night she was laying down and turned over onto her phone which caught the edge of her incision. She felt a significant amount of pain and warmth and looked down to a large open wound along her incision. She came immediately to the ED. She has had nothing to eat or drink since last night. HOSPITAL COURSE: She was admitted to the surgical service for further treatment of the wound dehiscence. It was recommended to proceed with wash out in the operating room, possible primary closure or wound vac placement. She was added onto the OR schedule for that day. She was started on IV cefazolin empirically. On 06/08/23, debridement, washout and closure of abdominal incision was performed by Dr. Zavaleta without immediate complication. She had a massive seroma which extended almost to the costal margin and the medial 3rd incision also dehisced with the right half the incision. ADRIANO drain was placed intraoperatively. The patient tolerated the procedure well. Abdominal binder was applied following. She had an uncomplicated recovery course. She remained inpatient for pain control with IV analgesics for 3 nights. Her ADRIANO output was serosanguineous and scanty and was removed on POD #2. On the day of discharge, the patient had adequate pain control on PO analgesics. She was tolerating a solid diet. She was ambulating without difficulty. Her incision was intact and clean without any evidence of infection. She was discharged to home on 06/11/23 in stable condition. She was discharged on a 5 day course of PO Keflex. She is to follow up in 1 week in the office. Status at Discharge Functional status at discharge: independent ambulation Overall status at discharge: patient is progressing back to baseline Time Spent with Patient Time attestation: Total time managing care of this patient today ____ minutes. Discharge coordination time: Less than 30 minutes Quality: Safe Use of Opioids Does Pt have an Active Cancer Diagnosis on the Problem List?: No Quality: Stroke Does the patient have a stroke diagnosis?: No Physical Exam Vital Signs: Vital Signs: Last Vital Signs Temp 97.8 F 06/11/23 07:33 Pulse 68 06/11/23 07:33 Resp 16 06/11/23 07:33 BP 99/50 L 06/11/23 07:33 Pulse Ox 96 06/11/23 07:33 O2 Del Method Room Air 06/11/23 07:33 O2 Flow Rate 2 06/08/23 14:33 BMI result Body Mass Index 27.1 Const: General: comfortable, no acute distress and alert Orientation/consciousness: patient oriented x3 Resp: Effort & Inspection: normal respiratory effort GI: Inspection: No distended and Yes incision (intact, no erythema, mildly tender) Palpation (GI): Soft to palpation, no guarding and not rigid Skin: General skin exam: no rashes or lesions noted Neuro: General: patient oriented x3 and moves all extremities Discharge Plan Discharge Anticipated Discharge Date/Time: 06/10/23 12:16 Patient Disposition: Home, Self-Care Discharge Diagnosis: wound dehiscence Referrals: Con Zavlaeta MD [Physician] - 1 Week Physician,Franny J [Primary Care Provider] - 1 Week Discharge Medications: New cephalexin 500 mg capsule 500 mg PO Q12H Qty: 10 0RF docusate sodium [Colace] 100 mg capsule 100 mg PO BID Qty: 30 0RF acetaminophen 500 mg tablet 1,000 mg PO Q6H PRN (Reason: pain) Qty: 30 0RF Discharge Orders: Discharge Order (Routine); Ordered 06/11/23 Ordered By: Ketty Kilpatrick Diet: Advance to usual diet Activity on Discharge: No heavy lifting Stand Alone Forms: Patient Portal Discharge page Activity Restrictions/Additional Instructions: Apply an ice pack for short intervals (20 minutes on, followed by at least 20 minutes off) for the first 2 days. Do not apply heat. Do not use creams, lotions, or topical antibiotics. These can cause infection or allergic reaction. Ok to shower 48 hours after your surgery. You have steri strips (small white cloth strips) covering your incision- these will fall off ~1 week. Follow up in office with Dr. Zavaleta in 1 week. ([phone]) No heavy lifting (>10lbs) or strenuous activity! Call Your Doctor If: -Your temperature exceeds 101.5? F -You experience excessive pain or swelling -You have an unexpected reaction to medication -You have excessive bleeding -You experience continued vomiting/nausea -Your incision begins to separate -Your incision shows signs of infection such as increased redness, swelling, excessive pain, drainage (light blood or clear fluid is normal) or heat Care Plan Goals: Return to baseline health and resume normal activities following recovery period. Health Concerns: s/p abdominoplasty wound dehiscence Plan of Treatment: s/p debridement and washout, closure of abdominoplasty incision no heavy lifting F/u in office with Dr. Zavaleta Assessment: Doing well post op. Discharge Date/Time: 06/11/23 09:55
--- NOTE | 2023-06-11 08:30 | PM.PNGS ---
Subjective Subjective Date of Service: 06/11/23 Interval history: Feels well this morning, wants to go home. Physical Exam Vital Signs: Vital Signs: Last Vital Signs Temp 97.8 F 06/11/23 07:33 Pulse 68 06/11/23 07:33 Resp 16 06/11/23 07:33 BP 99/50 L 06/11/23 07:33 Pulse Ox 96 06/11/23 07:33 O2 Del Method Room Air 06/11/23 07:33 O2 Flow Rate 2 06/08/23 14:33 BMI result Body Mass Index 27.1 Const: General: comfortable, no acute distress and alert Orientation/consciousness: patient oriented x3 Resp: Effort & Inspection: normal respiratory effort GI: Inspection: No distended and Yes incision (clean, intact) Palpation (GI): Soft to palpation, Tenderness to palpation present (GI) (mild incisional), no guarding and not rigid Skin: General skin exam: no rashes or lesions noted Neuro: General: patient oriented x3 Objective Data Active Medications Al Hydroxide/Mg Hydroxide (Magnesium Hydrox/Alum Hydrox 30 Ml Oral.Susp) 30 ml PO Q4H PRN PRN Reason: Heartburn/Nausea Docusate Sodium (Docusate Sodium 100 Mg Capsule) 100 mg PO BID RENATA Last Admin: 06/10/23 20:48 Dose: 100 mg Documented By: SANJAY Hydromorphone HCl (Hydromorphone Hcl 0.5 Mg/0.5 Ml Syringe) 0.5 mg IVPUSH Q4H PRN; Protocol PRN Reason: Pain, Severe (Pain Scale 7-10) Last Admin: 06/10/23 06:05 Dose: 0.5 mg Documented By: PAPO Hydromorphone HCl (Hydromorphone Hcl 2 Mg Tablet) 2 mg PO Q4H PRN PRN Reason: Pain, Moderate(Pain Scale 4-6) Last Admin: 06/11/23 06:17 Dose: 2 mg Documented By: PAPO Hydromorphone HCl (Hydromorphone Hcl 4 Mg Tablet) 4 mg PO Q4H PRN PRN Reason: Pain, Severe (Pain Scale 7-10) Last Admin: 06/10/23 20:48 Dose: 4 mg Documented By: SANJAY Cefazolin Sodium/Dextrose (Ancef) 2 gm in 50 mls @ 100 mls/hr IV Q8H [facility] Last Infusion: 06/11/23 06:53 Dose: Infused Documented By: PAPO Acetaminophen (Ofirmev) 1,000 mg in 100 mls @ 400 mls/hr IV Q6H [facility] Last Infusion: 06/11/23 04:26 Dose: Infused Documented By: PAPO Magnesium Hydroxide (Milk Of Magnesia 30 Ml Oral.Susp) 30 ml PO DAILY PRN PRN Reason: Constipation Ondansetron HCl (Ondansetron Hcl 4 Mg/2 Ml Vial) 4 mg IVPUSH Q8H PRN PRN Reason: Nausea and Vomiting Sodium Chloride (0.9 % Sodium Chloride Flush 3 Ml Syringe) 3 ml IVFLUSH QSHIFT [facility] Last Admin: 06/11/23 00:11 Dose: 3 ml Documented By: PAPO Zolpidem Tartrate (Zolpidem Tartrate 5 Mg Tablet) 5 mg PO BEDTIME PRN PRN Reason: Insomnia Last Admin: 06/08/23 22:14 Dose: 5 mg Documented By: CANDICE Labs 06/07/23 22:16 06/07/23 22:16 Procedures Date of Service Date of Service: 06/11/23 Progress Note: A&P Assessment and plan (1) Dehiscence of wound: Status: Acute Plan 32 year old female with superficial wound dehiscence s/p abdominoplasty now POD #3 s/p debridement, wash out and closure of abdominoplasty incision. Doing well and wants to go home. Stable for dc to home today. Educated no heavy lifting, f/u in office in 1 week. Previous prescription written for oxycodone which was filled by [facility] and already delivered to patient and taken home by family. Will therefore cancel dilaudid prescription. Discharging RN aware. Time Spent With Patient Time: Total time managing care of this patient today ____ minutes. Quality Stroke Does the patient have a stroke diagnosis?: No VTE Prior VTE?: No VTE Risk Level:: Surgical - low VTE Device Contraindication: Treatment Not Indicated VTE Drug Contraindication: Treatment Not Indicated
--- NOTE | 2023-06-11 09:11 | MHC.CM.PN ---
Patient is discharged to home self care. S.O. will provide transportation home.
== END 2023-06-11 09:55 | disposition home or self-care (01) | DRG 813 ==
LOC: HO.ED 22:37 → HO.EDOVER 23:29 → HO.S3 06-08 14:19
PROVIDERS: Admitting Provider Surgery; Emergency Provider Emergency Medicine; Visit Provider Surgery
PROC: 0HQ7XZZ Repair Abdomen Skin, External Approach (ICD-10-PCS; principal; 2023-06-08 11:00)
DX: T81.31XA Disruption of external operation (surgical) wound, not elsewhere classified, initial encounter (principal); L76.33 Postprocedural seroma of skin and subcutaneous tissue following a dermatologic procedure; Y83.8 Other surgical procedures as the cause of abnormal reaction of the patient, or of later complication, without mention of misadventure at the time of the procedure; E86.0 Dehydration
CPT/HCPCS: 36415; 80048; 80076; 83605; 83690; 85025; 99285; J0131; J0690; J1170; J2250; J2405; J2795; J3010

== ENCOUNTER → 2023-06-07 23:19 | Outpatient (BNV) | payer OTHER, SELFPAY | PROVIDERS: Admitting Provider Surgery; Emergency Provider Emergency Medicine; Visit Provider Surgery | DX: T81.30XA Disruption of wound, unspecified, initial encounter (principal) | CPT/HCPCS: 13160; 99024; 99222 ==

== ENCOUNTER 2023-06-15 08:44 | Outpatient (AMB) | payer OTHER, SELFPAY ==
[2023-06-15 08:53] VITALS: BP 108/71; PULSE 87
--- NOTE | 2023-06-15 08:53 | MHC.OFFVIS ---
Intake Vital Signs 06/15/23 08:53 Weight 149 lb BP 108/71 Blood Pressure Location Rt brachial Position Sitting Pulse 87 Intake Visit Reasons: Dehiscence abd wound Intake Note: Patient following up for wound check on abd. Reports wound was cleaned in shower yesterday. Feels like is healing well. Taking rx pain meds as needed. Still taking cephalexin. 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 Patient has no incisional issues or complaints. She is tolerating her diet. She is having regular bowel habits. [facility] Medical History No pertinent past medical history Surgical History History of breast augmentation History of gastric bypass H/O abdominoplasty Social History Household Members: Family Housing: House Do you presently have visiting nurse or other home services: No Alcohol intake: never Patient Tobacco Use Status: Never used Tobacco Second Hand Smoke Exposure: No service: No Physical Exam Vital Signs: Last Vital Signs Pulse 87 06/15/23 08:53 BP 108/71 06/15/23 08:53 GI Other: Abdominal wound is healing quite well. No evidence of any infection. Steri-Strips removed. Assessment & Plan Assessment & Plan (1) Dehiscence of wound: Code(s): T81.30XA - Disruption of wound, unspecified, initial encounter Plan Patient has been given very specific local instructions, and will be given no to resume work in approximately 4 weeks time with 2 weeks light duty which he commences. She will otherwise follow up p.r.n.. Coding Level of Care Code Global (43348) Diagnoses Dehiscence of wound T81.30XA
== END 2023-06-15 09:06 | disposition home or self-care (01) ==
PROVIDERS: Visit Provider Surgery
DX: T81.30XA Disruption of wound, unspecified, initial encounter (principal)
CPT/HCPCS: 99024

== ENCOUNTER → 2023-06-15 08:44 | Outpatient (BNVA) | payer OTHER, SELFPAY | PROVIDERS: Visit Provider Surgery ==

== ENCOUNTER 2023-07-13 14:25 | Outpatient (AMB) | payer OTHER, SELFPAY ==
[2023-07-13 14:38] VITALS: BP 123/79; PULSE 77
--- NOTE | 2023-07-13 14:38 | MHC.OFFVIS ---
Intake Vital Signs 07/13/23 14:38 Weight 151 lb BP 123/79 Blood Pressure Location Rt brachial Position Sitting Pulse 77 Intake Visit Reasons: ? Wound Infection Intake Note: Patient here concerned with abd wound infection. Noticed mild oozing along scar. 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 She was a extruding couple of sutures and was concerned that her dehiscence process was going to recur. PFSH Medical History No pertinent past medical history Surgical History History of breast augmentation History of gastric bypass H/O abdominoplasty Social History Household Members: Family Housing: House Do you presently have visiting nurse or other home services: No Alcohol intake: never Patient Tobacco Use Status: Never used Tobacco Second Hand Smoke Exposure: No service: No Physical Exam Vital Signs: Last Vital Signs Pulse 77 07/13/23 14:38 BP 123/79 07/13/23 14:38 GI Other: Incision is clean dry intact. There a couple of superficial sutures being extruded but the wound is very well healed with no obvious infection or seromas. Assessment & Plan Assessment & Plan (1) Dehiscence of wound: Code(s): T81.30XA - Disruption of wound, unspecified, initial encounter Plan Patient was reassured. She will commence work with of 2 weeks light duty note. Patient will follow-up p.r.n.. Coding Level of Care Code Global (25435) Diagnoses Dehiscence of wound T81.30XA
== END 2023-07-13 15:09 | disposition home or self-care (01) ==
PROVIDERS: Visit Provider Surgery
DX: T81.30XA Disruption of wound, unspecified, initial encounter (principal)
CPT/HCPCS: 99024

== ENCOUNTER → 2023-07-13 14:25 | Outpatient (BNVA) | payer OTHER, SELFPAY | PROVIDERS: Visit Provider Surgery ==

== ENCOUNTER 2025-01-14 15:08 | Emergency (ER) | payer OTHER, SELFPAY ==
--- NOTE | ~2025-01-14 | XR_ITS ---
CLINICAL HISTORY: pain, injury 3 view left hand Comparison: None Findings: No fractures or dislocations. No significant arthritic change. No erosions. No radiopaque foreign body. IMPRESSION: 1. No acute findings This document has been electronically signed by: Russell Stafford MD on 01/14/2025 16:20:15
--- NOTE | 2025-01-14 15:10 | ED.GENADULT ---
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 Denies numbness, tingling, weakness, injury to other area. Right-hand dominant. Related Data Previous Rx's ?Medication ?Instructions ?Recorded docusate sodium 100 mg capsule 100 mg PO BID #30 caps 06/09/23 (Colace) acetaminophen 500 mg tablet 1,000 mg (2 x 500 mg) PO Q6H PRN 06/10/23 pain #30 tabs Allergies Allergy/AdvReac Type Severity Reaction Status Date / Time Latex, Natural Rubber Allergy Unknown Verified 01/14/25 15:14 Review of Systems Review of Systems: Yes all other systems are reviewed and are negative Constitutional: Constitutional: Reports as per [facility] Past Medical History Attestation statement: The following information was validated with the patient. Source: old records reviewed Medical History No pertinent past medical history Surgical History History of breast augmentation History of gastric bypass H/O abdominoplasty Social History Social History Household Members: Family Housing: House Do you presently have visiting nurse or other home services: No Alcohol intake: never Patient Tobacco Use Status: Never used Tobacco Second Hand Smoke Exposure: No Advance Directives: No Advance Directives Information Provided: No Do you have a plan to hurt others: No Plan service: No Physical Exam ED Vital Signs: Vital Signs - 24 hr 01/14/25 15:11 Temperature 98.0 F Pulse Rate 78 Respiratory Rate 20 Blood Pressure 107/70 Pulse Oximetry 100 Oxygen Delivery Method Room Air BMI result Body Mass Index 27.5 Const General: cooperative, healthy appearing and no acute distress Orientation/consciousness: patient oriented x3 Limitations: no limitations HENMT Head: Yes normal to inspection and Yes atraumatic Ears: hearing grossly normal bilaterally General nose exam: Normal external nose present Face and sinus: Yes normal facial exam Eyes General: appearance normal, both eyes and all related structures EOM: EOMs intact bilaterally Neck Neck: Yes normal visual inspection and Yes no meningeal signs Resp Effort & Inspection: normal respiratory effort and no respiratory distress Cardio Rate: regular rate Skin Rashes: no rashes Wounds: no wounds Neuro General: patient oriented x3, tone normal and no meningeal signs Cranial nerves: Yes CN's II-XII intact bilaterally Gait exam (Neuro): Normal gait present Extrem Other: Left 2nd digit with appreciable swelling and ecchymosis. Limited ROM secondary to pain. Qtcuph-no-dpyku opposition intact with discomfort Wrist nontender. No snuffbox tenderness No open wounds. No crepitus Course Course Course Narrative: RME performed by Kelly Cooper PA-C. Patient is a 34 year old assigned female at presenting to the emergency department with left hand pain. Patient states she attempted to open a communications field technician and it crushed her left hand. Detailed physical exam and review of systems are deferred to the slipper maker. Imaging ordered. Patient placed back in the waiting room pending room availability and results. XR hand LT min 3V IMPRESSION: 1. No acute findings > finger splint applied for comfort / possible tendon injury. Patient states she is from [place], catching a flight at 20:00. Recommended close orthopedic follow up in [place] Results discussed with patient including worrisome signs and symptoms and strict return precautions, and when to return to the emergency dept They verbalized understanding and feel safe for discharge at this time. Medications Administered Discontinued Medications Generic Name Dose Route Start Last Admin Trade Name Freq PRN Reason Stop Dose Admin Ibuprofen 800 mg 01/14/25 15:50 01/14/25 16:01 Ibuprofen 800 Mg Tablet PO 01/14/25 15:51 Not Given ONCE ONE Oxycodone HCl 5 mg 01/14/25 16:02 01/14/25 16:04 Oxycodone Hcl Immed Release 5 Mg Tablet PO 01/14/25 16:03 5 mg ONCE ONE Administration Procedures Orthopedic Splinting/Casting Injury #1: Side: left Upper Extremity Injury Location: finger Upper Extremity Immobilizer: finger (other) Medical Decision Making Medical Decision Making MDM Narrative: 34-year-old female with no significant past medical history presenting to the ED complaining of left hand > index finger pain and swelling 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 On exam vital signs stable, NAD, nontoxic appearing, physical exam as noted above. Concern for fracture vs contusion vs strain. Tendon/ligamental injury on differential. No open wounds. No evidence of septic joint/arthritis Plan: X-ray, pain control Please refer to course for remaining clinical decision making, interpretation of labs/imaging results, and discussions with consultants and/or family members. Differential Diagnosis Differential Diagnoses: The differential diagnosis associated with the presentation includes As above Independent Interpretation I performed an independent interpretation of an: Plain X-Ray Radiology Impression Discussion of test interpretation with radiology: I have reviewed the radiologist's reading. External Record Review External record reviewed: Inpatient record, Office record, Outpatient record, Prior outpatient labs, Prior outpatient radiology, Primary care record and Outside ED record Tests considered The following testing was considered but not selected: As above Prescription Management I considered prescription management with: Pain Medication Chronic Conditions Patient?s care impacted by: Other Social Determinants Patient?s care significantly limited by Social Determinants of Health including: Other Social Determinant of Health Discharge Plan Discharge Clinical Impression: Crush injury to finger Patient Disposition: Home, Self-Care Instructions: Crush Injury (ED) Additional Instructions: Your x-rays unremarkable, there are no fractures however You may have a tendon injury Please wear finger splint, you need to see an orthopedic hand specialist. Ice and elevate Take Tylenol for pain If her symptoms persist or worsen area begins to look infected, is red, there is pus drainage or you have fever return to the ED Prescriptions: No Action docusate sodium [Colace] 100 mg capsule 100 mg PO BID Qty: 30 0RF acetaminophen 500 mg tablet 1,000 mg PO Q6H PRN (Reason: pain) Qty: 30 0RF Referrals: [facility] [place] [facility] [Provider Group] - 1 week Verona Taylor MD [Primary Care Provider] - Print Language: Lao
[2025-01-14 15:11] VITALS: BP 107/70; PULSE 78; RESP 20; TEMP 36.7; O2SAT 100; BMI 27.5
--- OUTSIDE RECORDS SUMMARY | 2025-01-14 16:01 | XMS_ITS | Data Portability ---
Author Organization [facility], [facility], [facility] Address [address] [place] [address] Care Team Providers Care Business Information Analyst Name Role Phone CHRISTIAN ONEILL Primary Care Provider [phone] CHRISTIAN ONEILL Referring Provider Assessment No assessment recorded. Plan of Treatment Reminders Order Date Submit Date Provider Last Modified By Organization Details Last Modified Time Details Appointments None recorded. Lab lipid panel, serum 2023 024 [facility], [address], [place], [address], 4 03:42:04 CBC 2023 024 [facility], [address] [place], [address], 4 03:41:54 CMP, serum or plasma 2023 024 [facility], [address], [place], [address], 4 03:42:03 TSH, serum or plasma [email or web address] [facility] [address] [facility], [address], [place], [address], 4 08:23:15 venipunctur e 2023 [facility], [address], [place], [address], 07:45:31 vitamin B12 + folate, serum or blood 2023 [facility], [address], [place], [address], 4 03:41:25 TSH + free T4, serum 2023 [facility], [address], [place], [address], 03:42:05 Referral None recorded. Procedures None recorded. Surgeries None recorded. Imaging None recorded. Medication Orders oxycodone 5 mg tablet 2023 [place] [id number], [address] [place] [address], [address], 11:01:10 Adderall XR 10 mg capsule,ext ended release 2023 [place] [id number], [address] [place] [address], [id number], 09:05:15 Patient TargetsNo targets recorded. Patient Instructions Encounter Date Encounter Id Patient Instructions Last Modified By Organization Details Last Modified Time 06/21/2024 [id number] attention defici t hyperactivity disorder (ADHD) in adults: care instructions [email or web address] Not available 06/21/2024 09:05:12 08/08/2024 [id number] attention defici t hyperactivity disorder (ADHD) in adults: care instructions [email or web address] Not available 08/08/2024 11:01:08 Reason for Referral None Reported. Results Created Date Observation Date Name Description Value Unit Range Abnormal Flag Note LastModifiedBy Organization Detail LastModifiedTime 06/29/2007/01/2024 VITAM IN B12 & FOLAT E vitamin B12 264 pg/mL 200-11 00 normal Pleas e Note: Altho ugh the refer ence range for vitam in B12 is 200-1 100 pg/mL , it has been repor tanner that betwe en 5 and 10% of patie nts with value s betwe en 200 and 400 pg/mL may exper ience neuro psych iatri c and hemat ologi c abnor malit ies due to occul t B12 defic iency ; less than 1% of patie nts with value s above 400 pg/mL will have sympt oms. Not Available [facility] [address] [facility] [address], [place], [address], 07/01/2024 03:41:25 06/29/2007/01/2024 VITAM IN B12 & FOLAT E folate, serum 11.9 NG/mL normal Refer ence Range Low: <3.4 Borde rline : 3.4-5 .4 Ny l: >5.4 Not Available [facility] [address] [facility] [address], [place], [address], 07/01/2024 03:41:25 06/29/20 24 07/01/2024 CBC W/ AUTOD IFF, COMPL ETE BLOOD COUNT white blood cell count 4.7 thous and/u L 3.8-10 .8 normal Not Available [facility] [address] [facility] [address], [place], [address], 07/01/2024 03:41:54 06/29/20 24 07/01/2024 CBC W/ AUTOD IFF, COMPL ETE BLOOD COUNT red blood cell count 3.80 amy on/uL 3.80-5 .10 normal Not Available [facility] [address], [place], [address], 07/01/2024 03:41:54 06/29/20 24 07/01/2024 CBC W/ AUTOD IFF, COMPL ETE BLOOD COUNT hemoglobin 10.1 g/dL 11.7-1 5.5 low Not Available [facility] [address], [place], [address], 07/01/2024 03:41:54 06/29/20 24 07/01/2024 CBC W/ AUTOD IFF, COMPL ETE BLOOD COUNT hematocrit 34.3 % 35.0-4 5.0 low Not Available [facility] [address], [place], [address], 07/01/2024 03:41:54 06/29/20 24 07/01/2024 CBC W/ AUTOD IFF, COMPL ETE BLOOD COUNT MCV 90.3 fL 80.0-1 00.0 normal Not Available [facility] [address], [place], [address], 07/01/2024 03:41:54 06/29/20 24 07/01/2024 CBC W/ AUTOD IFF, COMPL ETE BLOOD COUNT MCH 26.6 pg 27.0-3 3.0 low Not Available [facility] [address], [place], [address], 07/01/2024 03:41:54 06/29/20 24 07/01/2024 CBC W/ AUTOD IFF, COMPL ETE BLOOD COUNT MCHC 29.4 g/dL 32.0-3 6.0 low For adult s, a sligh t decre ase in the calcu lated MCHC value (in the range of 30 to 32 g/dL) is most likel y not clini evette signi amy t; rupal er, it shoul d be inter prete d with cauti on in [facility] n with other red cell filiberto eters and the patie nt's clini janes condi tion. Not Available [facility] [address], [place], [address], 07/01/2024 03:41:54 06/29/20 24 07/01/2024 CBC W/ AUTOD IFF, COMPL ETE BLOOD COUNT RDW 13.0 % 11.0-1 5.0 normal Not Available [facility] [address], [place], [address], 07/01/2024 03:41:54 06/29/20 24 07/01/2024 CBC W/ AUTOD IFF, COMPL ETE BLOOD COUNT platelet count 273 thous and/u L 140-40 0 normal Not Available [facility], [place], [address], 07/01/2024 03:41:54 06/29/2007/01/2024 CBC W/ AUTOD IFF, COMPL ETE BLOOD COUNT MPV 10.3 fL 7.5-12 .5 normal Not Available [facility] [address] [place] [address] [address], [place], [address], 07/01/2024 03:41:54 06/29/2007/01/2024 CBC W/ AUTOD IFF, COMPL ETE BLOOD COUNT absolute neutrophils 2242 cells /uL 1500-7 800 normal Not Available [facility] [address] [place] [address] [address], [place], [address], 07/01/2024 03:41:54 06/29/2007/01/2024 CBC W/ AUTOD IFF, COMPL ETE BLOOD COUNT absolute lymphocytes 1922 cells /uL 850-39 00 normal Not Available [facility] [address], [place], [address], 07/01/2024 03:41:54 06/29/2007/01/2024 CBC W/ AUTOD IFF, COMPL ETE BLOOD COUNT absolute monocytes 395 cells /uL 200-95 0 normal Not Available [facility] [address] [place] [address] [address], [place], [address], 07/01/2024 03:41:54 06/29/20 24 07/01/2024 CBC W/ AUTOD IFF, COMPL ETE BLOOD COUNT absolute eosinophils 122 cells /uL 15-500 normal Not Available [facility] [address], [place], [address], 07/01/2024 03:41:54 06/29/20 24 07/01/2024 CBC W/ AUTOD IFF, COMPL ETE BLOOD COUNT absolute basophils 19 cells /uL 0-200 normal Not Available [facility] [address], [place], [address], 07/01/2024 03:41:54 06/29/20 24 07/01/2024 CBC W/ AUTOD IFF, COMPL ETE BLOOD COUNT neutrophils 47.7 % normal Not Available [facility] [address], [place], [address], 07/01/2024 03:41:54 06/29/20 24 07/01/2024 CBC W/ AUTOD IFF, COMPL ETE BLOOD COUNT lymphocytes 40.9 % normal Not Available [facility] [address], [place], [address], 07/01/2024 03:41:54 06/29/20 24 07/01/2024 CBC W/ AUTOD IFF, COMPL ETE BLOOD COUNT monocytes 8.4 % normal Not Available [facility] [address], [place], [address], 07/01/2024 03:41:54 06/29/20 24 07/01/2024 CBC W/ AUTOD IFF, COMPL ETE BLOOD COUNT eosinophils 2.6 % normal Not Available [facility] [address], [place], [address], 07/01/2024 03:41:54 06/29/20 24 07/01/2024 CBC W/ AUTOD IFF, COMPL ETE BLOOD COUNT basophils 0.4 % normal Not Available [facility] [address] [facility] [address], [place], [address], 07/01/2024 03:41:54 06/29/20 24 07/01/2024 CMP, COMPR EHENS LUZ METAB OLIC PANEL glucose 82 mg/dL 65-99 normal Fasti ng refer ence inter nessa Not Available [facility] [address] [facility] [address], [place], [address], 07/01/2024 03:42:03 06/29/2007/01/2024 CMP, COMPR EHENS LUZ METAB OLIC PANEL urea nitrogen (BUN) 14 mg/dL 7-25 normal Not Available [facility] [address] [facility] [address] [place], [address], 07/01/2024 03:42:03 06/29/2007/01/2024 CMP, COMPR EHENS LUZ METAB OLIC PANEL creatinine 0.68 mg/dL 0.50-0 .97 normal Not Available [facility] [address] [facility] [address], [place], [address], 07/01/2024 03:42:03 06/29/2007/01/2024 CMP, COMPR EHENS LUZ METAB OLIC PANEL eGFR 117 mL/mi n/1.7 3m2 > or = 60 normal Not Available [facility] [address] [facility] [address], [place], [address], 07/01/2024 03:42:03 06/29/2007/01/2024 CMP, COMPR EHENS LUZ METAB OLIC PANEL BUN/creatini ne ratio SEE NOTE: (calc ) 6-22 Not Repor tanner: BUN and Creat inine are withi n refer ence range . Not Available [facility] [address] [facility] [address], [place], [address], 07/01/2024 03:42:03 06/29/20 24 07/01/2024 CMP, COMPR EHENS LUZ METAB OLIC PANEL sodium 139 mmol/ L 135-14 6 normal Not Available [facility] [address], [place], [address], 07/01/2024 03:42:03 06/29/2007/01/2024 CMP, COMPR EHENS LUZ METAB OLIC PANEL potassium 3.8 mmol/ L 3.5-5. 3 normal Not Available [facility] [address], [place], [address], 07/01/2024 03:42:03 06/29/2007/01/2024 CMP, COMPR EHENS LUZ METAB OLIC PANEL chloride 105 mmol/ L 98-110 normal Not Available [facility] [address], [place], [address], 07/01/2024 03:42:03 06/29/2007/01/2024 CMP, COMPR EHENS LUZ METAB OLIC PANEL carbon dioxide 26 mmol/ L 20-32 normal Not Available [facility] [address] [facility] [address], [place], [address], 07/01/2024 03:42:03 06/29/2007/01/2024 CMP, COMPR EHENS LUZ METAB OLIC PANEL calcium 9.1 mg/dL 8.6-10 .2 normal Not Available [facility] [address], [place], [address], 07/01/2024 03:42:03 06/29/2007/01/2024 CMP, COMPR EHENS LUZ METAB OLIC PANEL protein, total 7.0 g/dL 6.1-8. 1 normal Not Available [facility] [address] [place], [address], 07/01/2024 03:42:03 06/29/20 24 07/01/2024 CMP, COMPR EHENS LUZ METAB OLIC PANEL albumin 4.3 g/dL 3.6-5. 1 normal Not Available [facility] [address] [facility] [address], [place], [address], 07/01/2024 03:42:03 06/29/20 24 07/01/2024 CMP, COMPR EHENS LUZ METAB OLIC PANEL globulin 2.7 g/dL_ (calc ) 1.9-3. 7 normal Not Available [facility] [address] [facility] [address], [place], [address], 07/01/2024 03:42:03 06/29/20 24 07/01/2024 CMP, COMPR EHENS LUZ METAB OLIC PANEL albumin/glob ulin ratio 1.6 (calc ) 1.0-2. 5 normal Not Available [facility] [address] [facility] [address], [place], [address], 07/01/2024 03:42:03 06/29/20 24 07/01/2024 CMP, COMPR EHENS LUZ METAB OLIC PANEL bilirubin, total 0.6 mg/dL 0.2-1. 2 normal Not Available [facility] [address] [facility] [address] [place], [address], 07/01/2024 03:42:03 06/29/20 24 07/01/2024 CMP, COMPR EHENS LUZ METAB OLIC PANEL alkaline phosphatase 76 U/L 31-125 normal Not Available [facility] [address] [facility] [address], [place], [address], 07/01/2024 03:42:03 06/29/20 24 07/01/2024 CMP, COMPR EHENS LUZ METAB OLIC PANEL AST 11 U/L 10-30 normal Not Available [facility] [address] [facility] [address], [place], [address], 07/01/2024 03:42:03 06/29/2007/01/2024 CMP, COMPR EHENS LUZ METAB OLIC PANEL ALT 11 U/L 6-29 normal Not Available [facility] [address] [facility] [address], [place], [address], 07/01/2024 03:42:03 06/29/20 24 07/01/2024 LIPID PANEL W/ CALCU LATED LDL cholesterol, total 142 mg/dL <200 normal Not Available [facility] [address] [facility] [address], [place], [address], 07/01/2024 03:42:04 06/29/20 24 07/01/2024 LIPID PANEL W/ CALCU LATED LDL HDL cholesterol 49 mg/dL > or = 50 low Not Available [facility] [address] [facility] [address], [place], [address], 07/01/2024 03:42:04 06/29/20 24 07/01/2024 LIPID PANEL W/ CALCU LATED LDL triglyceride s 45 mg/dL <150 normal Not Available [facility] [address] [facility] [address] [place], [address], 07/01/2024 03:42:04 06/29/20 24 07/01/2024 LIPID PANEL W/ CALCU LATED LDL LDL-choleste rol 80 mg/dL _(janes c) normal Refer ence range : <100 Renato able range <100 mg/dL for prima ry preve ntion ; <70 mg/dL for patie nts with CHD or diabe tic patie nts with > or = 2 CHD risk facto rs. LDL-C is now calcu lated using the Swetha n-Hop kins calcu elliott n, which is a valid ated novel metho d provi bailey leonard r accur acy than the Fried rayshawn equat ion in the estim ation of LDL-C . Swetha n SS et al. SAURABH. 2013; 310(1 9): 2061- 2068 (http ://ed zachati on.PillGuard Bg MyParichay. HALKAR/f aq/FA Q164) Not Available [facility] [address] [facility] [address], [place], [address], 07/01/2024 03:42:04 06/29/20 24 07/01/2024 LIPID PANEL W/ CALCU LATED LDL chol/HDLC ratio 2.9 (calc ) <5.0 normal Not Available [facility] [address] [facility] [address], [place], [address], 07/01/2024 03:42:04 06/29/20 24 07/01/2024 LIPID PANEL W/ CALCU LATED LDL non HDL cholesterol 93 mg/dL _(janes c) <130 normal For patie nts with diabe priscila plus 1 major ASCVD risk facto r, treat ing to a non-H DL-C goal of <100 mg/dL (LDL- C of <70 mg/dL ) is consi martin davey n. Not Available [facility] [address] [facility] [address], [place], [address], 07/01/2024 03:42:04 06/29/20 24 07/01/2024 TSH+F REE T4 TSH 2.23 mIU/L normal Refer ence Range > or = 20 Years 0.40- 4.50 Pregn kim Range s First trime ster 0.26- 2.66 Secon d trime ster 0.55- 2.73 Third trime ster 0.43- 2.91 Not Available [facility] [address] [facility] [address], [place], [address], 07/01/2024 03:42:05 06/29/20 24 07/01/2024 TSH+F REE T4 T4, free 0.8 NG/dL 0.8-1. 8 normal Not Available [facility] [address] [facility] [address] [place], [address], 07/01/2024 03:42:05 06/29/20 24 06/29/2024 VENIP UNCTU RE results Compl ete Not Available [facility] [address] [facility] [address] [place], [address], 06/29/2024 07:45:31 07/07/20 24 07/07/2024 RAPID INFLU ALISA A+B AND SARS COV 2 ANTIG EN rapid sars cov antigen,resp . NEGATI VE negati ve Not Available [facility] [address] [facility] [address], [place], [address], 07/07/2024 08:08:11 07/07/20 24 07/07/2024 RAPID INFLU ALISA A+B AND SARS COV 2 ANTIG EN flu A NEGATI VE negati ve Not Available [facility] [address] [facility] [address], [place], [address], 07/07/2024 08:08:11 07/07/20 24 07/07/2024 RAPID INFLU ALISA A+B AND SARS COV 2 ANTIG EN flu B NEGATI VE negati ve Not Available [facility] [address] [facility] [address] [place], [address], 07/07/2024 08:08:11 07/07/20 24 07/07/2024 STREP RAPID SCREE N rapid strep NEGATI VE negati ve Not Available [facility] [address] [facility] [address] [place], [address], 07/07/2024 09:14:51 Result Notes None recorded. Problems No Known Problems Procedures Surgical History Date Name Laterality Status Provider Name and Address Organization Details Recorded Time 01/11/20 Quality TCM Medication Reconciliation cancelled Kelly SINGER - [facility], [facility] 01/10/2025 07:56:40 12/29/19 Date of Last Pap Smear completed [facility], [facility] 06/21/2024 08:34:33 Other completed [facility], [facility] 06/21/2024 08:27:08 Imaging Results None recorded. Procedure Notes None recorded. Medical Equipment None Reported. Allergies Allergen ID Allergen Name Allergen Category Reaction Reaction Severity Criticality Documentation Date Start Date Code Code System Note Provider Name and Address Organization Details Recorded Time 4243296 latex environme nt,medica tion respirato ry distress Not available Not available 06/21/2024 84115 91 [facility], [facility] 08:27:08 Medications Name Sig Start Date Stop Date Status Note LastModified by Organization Details LastModified Time cyclobenzaprine 10 mg tablet Take 1 tablet 3 times a day by oral route. active Not Available Not Available No t Available Adderall XR 20 mg capsule,extende d release TAKE 1 CAPSULE BY MOUTH EVERY DAY NEEDED active Not Available Not Available No t Available gabapentin 300 mg capsule TAKE ONE CAPSULE BY MOUTH THREE TIMES A DAY FOR 21 DAYS active Not Available Not Available No t Available Adderall XR 10 mg capsule,extende d release Take 1 capsule every day by oral route. 2023 active Not Available Not Available Not Avai lable diazepam 5 mg tablet TAKE 1 TABLET TWICE A DAY BY ORAL ROUTE NEEDED. active Not Available Not Available No t Available oxycodone 5 mg tablet TAKE 1 TABLET TWICE A DAY BY ORAL ROUTE NEEDED. active Not Available Not Available No t Available Vitals Date Recorded Body height Provider Name an d Address Organization Details Last Updated DateTime 01/10/2025 157.48 cm Kelly Vega [facility], [facility] 01/10/2025 13:15:56 Date Recorded Body weight Body mass index (BMI) Body height Body temperature Respiratory rate Heart rate Oxygen saturation Oxygen saturation in Arterial blood by Pulse oximetry Systolic blood pressure Diastolic blood pressure Provider Name and Address Organization Details Last Updated DateTime 41441.5 1 g 28.1 kg/m2 157.48 cm 98.1 [degF] 15 /min 70 /min 98 % 98 % 100 mm[Hg] 62 mm[Hg] Lili Devine [facility], [facility] 08:35:59 Date Recorded Body height Body mass index (BMI) Body weight Body temperature Respiratory rate Heart rate Oxygen saturation Oxygen saturation in Arterial blood by Pulse oximetry Systolic blood pressure Diastolic blood pressure Provider Name and Address Organization Details Last Updated DateTime 4 157.48 cm 28.1 kg/m2 57384.0 7 g 97.5 [degF] 15 /min 67 /min 99 % 99 % 110 mm[Hg] 72 mm[Hg] Lili Devine [facility], [facility] 4 10:24:02 Social History Question Answer Notes LastModified by Organizat ion Details LastModified Time Tobacco Smoking Status Never Smoker Lili Sybil grider [facility], [facility] 06/21/2024 08:27:08 Do You Have An Advance Directive? No [email or web address] Information n ot available 06/21/2024 Is Your Home Air Conditioned? Yes [email or web address] Information not available 06/21/2024 Is Blood Transfusion Acceptable In An Emergency? Yes Information not available 06/21/2024 What Type Of Diet Are You Following? REGULAR Information n ot available 06/21/2024 What Is The Highest Grade Or Level Of School You Have Completed Or The Highest Degree You Have Received? DR64310-3 [email or web address] Information not available 06/21/2024 Do You Have An Electrostatic Air Filter? No [email or web address] Information not available 06/21/2024 What Is The Fluoride Status Of Your Home? Fluoridated [email or web address] Information not available 06/21/2024 Which Of Your Hands Is Dominant? Right [email or web address] Information n ot available 06/21/2024 Do You Have A Humidifier? No [email or web address] Information not available 06/21/2024 What Was The Date Of Your Most Recent Tobacco Screening? 06/21/2024 [email or web address] Information not available 06/21/2024 What Is Your Relationship Status? Single [email or web address] Information not available 06/21/2024 Do You Use Your Seat Belt Or Car Seat Routinely? Yes [email or web address] Information not available 06/21/2024 Are You Sexually Active? Yes [email or web address] Information not available 06/21/2024 Are There Any Smokers In Your House? No [email or web address] Information not available 06/21/2024 Do You Have Any Dietary Restrictions? No Information not available 06/21/2024 Sex: Female Functional Status Question Answer Note LastModified by Organizat ion Details LastModified Time Do you use any illicit or recreational drugs? No Information not available 06/21/2024 Do you or have you ever used any other forms of tobacco or nicotine? No [email or web address] Information not available 06/21/2024 What is your level of alcohol consumption? None [email or web address] Information not available 06/21/2024 Do you or have you ever used smokeless tobacco? Never used [email or web address] tobacco Information not available 06/21/2024 Are you currently employed? Yes [email or web address] Information not available 06/21/2024 Have you been exposed to chemicals or toxins? No Information not available 06/21/2024 Do you have transportation difficulties? No [email or web address] Information not available 06/21/2024 Are you able to care for yourself? Yes Information n ot available 06/21/2024 What is your exercise level? Moderate [email or web address] Information not available 06/21/2024 Mental Status None recorded. Family History Relationship Description Onset Age of this Age Resolved Age Notes LastModified by Organization Details LastModified Time Mother Hypertensive disorder [email or web address] Not available 2023 08:27:08 Mother Diabetes mellitus [email or web address] Not available 2023 08:27:08 Father Hypertensive disorder Not available 2023 08:27:08 Father Anxiety [email or web address] Not available 06/21/2024 08:27:08 Father Heart disease Not available 2023 08:27:08 Father Mental disorder Not available 2023 08:27:08 Medical History Condition Response Anemia Y Anxiety/Stress Y Depression Y Allergies (other than meds) Y Gynecological History Statement/Question Response Menses Monthly N STIs/STDs N Date of Last Pap Smear 12/28/2022 Obstetrics History GPAL:G 0 P 0 0 0 0 Past Encounters Encounter ID Performer Location Encounter Start Date Encounter Closed Date Diagnosis/Indication Diagnosis SNOMED-CT Code Diagnosis ICD10 Code Diagnosis Note [id number] MD YUDI Vail [facility] [address] [facility] [address] [facility] [address] [place] [address] 06/21/2024 08:23:37 06/21/2024 10:16:48 Attention deficit hyperactivity disorder, 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 F90.0 suboptimal control, adjust treatment as directed, follow up as needed Adult [facility] th examination 984570344 Z00.00 Fatigue 52167713 R53.83 suboptimal control, adjust treatment as directed, follow up as needed [id number] MD YUDI Vail [facility] [address] [facility] [address] [facility] [address] [place] [address] 08/08/2024 09:54:47 08/08/2024 11:01:33 Attention deficit hyperactivity disorder, predominantly inattentive type 99634316 F90.0 suboptimal control, adjust treatment as directed, follow up as needed 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, s/p small bowel surgery Health Concerns Section Related Observation LastModified by Organization Detai ls LastModified Time None Recorded Concern Status LastModified by Organization Details LastModified Time None Recorded Advance Directives Directive N: Payers Insurance Date Sequence Insurance Name Policy Number Policy Perkins Covered Member ID Perkins Member ID Guarantor Name 01/10/2025 3 [id number] Ting Mitchell [id number] Ting Mitchell 01/10/2025 2 [employer] [facility] ([facility]) Ting Mitchell [id number] Ting Mitchell 01/10/2025 2 [employer] ([facility]) Ting Silva [id number] Ting Mitchell 01/10/2025 1 [employer] [facility] ([facility]) Ting Silva [id number] Ting Mitchell 01/10/2025 1 *SELF PAY* Merissa Mitchell 01/10/2025 1 [facility] ([facility]) Ting Mitchell [id number] Ting Mitchell Notes Date Note Type Note Provider Name and Address Organization Details Recorded Time 06/21/2024 text/html FatigueReported bypatient.Reason for visit:continued care of chronic complaint Quality:tired;excessi ve sleepiness Severity:moderate; unchanged Duration:constant Onset/Timing:gradual Alleviating factors:increased sleep; exercise; stress management Aggravating factors:stress Associated Symptoms:no fever; no dyspnea; no hair loss QUALITY MEASURE QUESTIONNAIRE Are you a diabetic patient Yes Has the Patient had a Diabetic Eye Exam in the last year No PAP Results Negative Imported from [employer] on 06/21/2024 Christian Oneill MD [id number], [place], [id number], [employer] 07/11/2024 15:27:33 08/08/2024 text/html ADD/ADHDReported bypatient.Reason for visit:continued care of chronic complaint Type:ADD Presenting symptoms/method of dx:inattentive;discip line issues;work difficulty Current therapy:medication list reviewed Side Effects from Medications/Treatment :no side effects from medication Current control and compliance:usually well controlled/stable; usually compliant with regimen Current symptoms/concerns:goo d communication; stable mood; good appetiteNotes:She was admitted for intestinal blockage and had small intestine resection surgeries less than 10 days ago, slowly returning to normal Christian Oneill MD [id number], [place], [id number], [employer] 08/15/2024 11:17:35 OBGyn Episode No OBEpisode recorded.
[2025-01-14] MEDS: oxyCODONE HCl Immed Release 5 MG TABLET PO (16:04)
--- NOTE | 2025-01-14 16:06 | PC.NURSE ---
pt medicated per MAR- IBU not given d/t pt PMhx of Gastric bypass- PIYUSH barrett
[2025-01-14 16:47] VITALS: BP 117/79; PULSE 79; RESP 16; TEMP 36.7; O2SAT 100
[2025-01-14 16:52] VITALS: BP 117/79; PULSE 79; RESP 16; TEMP 36.7; O2SAT 100
== END 2025-01-14 16:53 | disposition home or self-care (01) ==
PROVIDERS: Emergency Provider Emergency Medicine; PCP Internal Medicine
DX: S69.82XA Other specified injuries of left wrist, hand and finger(s), initial encounter (principal); W31.89XA Contact with other specified machinery, initial encounter; Y93.H2 Activity, gardening and landscaping; Y92.9 Unspecified place or not applicable; Y99.9 Unspecified external cause status; M79.645 Pain in left finger(s)
CPT/HCPCS: 73130; 99283; 99284

== ENCOUNTER → 2025-01-14 15:11 | Outpatient (BNV) | payer OTHER, SELFPAY | PROVIDERS: Emergency Provider Emergency Medicine; PCP Internal Medicine; Visit Provider Radiology Vascular & Interventional Radiology | DX: M79.642 Pain in left hand (principal) | CPT/HCPCS: 73130 ==